=== PATIENT | female | born 1975 | race Caucasian/White ===

== ENCOUNTER 2021-02-16 12:07 | Outpatient (REF) | payer OTHER, SELFPAY ==
--- NOTE | ~2021-02-16 | XR_ITS ---
EXAMINATION: XR THORACOLUMBAR SPINE CLINICAL INFORMATION: Dorsal pain COMPARISON: None TECHNIQUE: 2 views FINDINGS: There is normal thoracic kyphosis. The vertebral heights, alignment and disc heights are normal. There is mild ventral spondylosis throughout dorsal spine. No lytic process. XR/XR thoracic spine 2V IMPRESSION: No compression fractures or subluxations are identified. The disc spaces are preserved ventral spondylosis. The prevertebral soft tissues are normal. The foramina are patent.
[2021-02-16 13:54] LABS: Hematocrit 42.2 % (37-47); Hemoglobin 13.5 g/dl (12.0-16.0); Mean Corpuscular Hemoglobin 27.3 pg (27.0-33.0); Mean Corpuscular Volume 85.3 fL (80-98); Mean Platelet Volume 10.9 fL (9.4-12.3); Platelet Count 297 X10*3/uL (160-400); Red Blood Count 4.95 X10*6/uL (4.20-5.50); Red Cell Distribution Width 13.2 % (11.0-16.0); White Blood Count 11.9 X10*3/uL (4.8-10.8)
[2021-02-16 14:22] LABS: Alanine Aminotransferase 18 U/L (0-31); Albumin Level 4.2 g/dL (3.5-5.0); Alkaline Phosphatase 74 U/L (39-117); Anion Gap 13 (12-20); Aspartate Amino Transferase 14 U/L (5-31); Bilirubin Total 0.5 mg/dL (0.0-1.0); Blood Urea Nitrogen 15 mg/dL (9-16); Carbon Dioxide 27 mmol/L (22-29); Chloride 101 mmol/L (96-108); Cholesterol 185 mg/dL; Estimated Glomerular Filt Rate > 60; Glucose Fasting 97 mg/dL (60-99); HDL Cholesterol 47 mg/dL; LDL Cholesterol Calculated 105 mg/dl; Potassium 4.5 mmol/L (3.3-5.1); Sodium 136 mmol/L (135-145); Total Protein 7.7 g/dL (6.5-8.0); Triglycerides 166 mg/dL
[2021-02-16 14:43] LABS: Thyroid Stimulating Hormone 1.21 uIU/mL (0.32-4.0)
[2021-02-16 16:46] LABS: Appearance Urine CLOUDY; Color Urine YELLOW; Glucose Urine UA NEG (NEG); Leukocyte Esterase Urine NEG (NEG); Nitrite Urine NEG (NEG); PH 5.5 (5.0-8.0); Specific Gravity - Urine >= 1.030 (1.005-1.025); Urine Blood NEG (NEG); Urine Ketones NEG (NEG); Urine Protein NEG (NEG-TRACE)
[2021-02-16 16:57] LABS: Amorphous Sediment Urine 3+ /LPF; RBC Urine 0 /HPF (0); WBC Urine 0 /HPF (0-4)
[2021-02-17 08:21] LABS: Syphilis Screen Nonreactive (Nonreactive)
[2021-02-17 09:02] LABS: HIV AB/AG Nonreactive (Nonreactive); HIV Num 1 0.11 S/CO (0.00-0.99)
[2021-02-17 09:14] LABS: CT PCR NOT DETECTED (Not Detect.); NG PCR NOT DETECTED (Not Detect.)
== END 2021-02-16 12:08 | disposition home or self-care (01) ==
LOC: HO.HMGCLDS 12:07
PROVIDERS: PCP Internal Medicine; Visit Provider Internal Medicine
DX: M54.9 Dorsalgia, unspecified (principal); Z00.00 Encounter for general adult medical examination without abnormal findings
CPT/HCPCS: 36415; 72070; 80053; 80061; 81001; 84443; 85027; 86780; 87389; 87491; 87591

== ENCOUNTER 2021-07-13 15:12 | Outpatient (REF) | payer OTHER, SELFPAY ==
[2021-07-13 18:01] LABS: Cholesterol 216 mg/dL; HDL Cholesterol 47 mg/dL; LDL Cholesterol Calculated 135 mg/dl; Triglycerides 172 mg/dL
[2021-07-14 07:38] LABS: Estimated Average Glucose 105 mg/dL; Hemoglobin A1c % 5.3 %
== END 2021-07-13 15:13 | disposition home or self-care (01) ==
LOC: HO.HMGCLDS 15:12
PROVIDERS: PCP Internal Medicine; Visit Provider Psychiatry & Neurology Psychiatry
DX: Z79.899 Other long term (current) drug therapy (principal)
CPT/HCPCS: 36415; 80061; 83036

== ENCOUNTER → 2021-07-20 10:21 | Outpatient (REF) | payer OTHER, SELFPAY ==
--- NOTE | 2021-07-20 10:24 | CA_ITS ---
Acquisition Time: 2021-07-20 10:26:55 Total Exercise Time: 00:05:00 Test Indications: CP Medications: SEE CHART Protocol: CARRILLO Max HR: 155 BPM 89% of Pred: 174 BPM Max BP: 150/080 mmHG Max Work Load: 7.0 METS Exercise stress test with exercise 5 min of Carrillo protocol with request to stop due to mild to moderate sob and fatigue, without chest discomfort, with isolated PVC, with normotensive response to exercise, without EKG changes meeting criteria for ischemia. Test reviewed with Dr Johns. Referred By: Anika Mcgee Overread By: MADDY WHITMAN
== END ==
LOC: HO.CARD 10:21
PROVIDERS: PCP Internal Medicine; Visit Provider Internal Medicine
DX: R07.9 Chest pain, unspecified (principal)
CPT/HCPCS: 93017

== ENCOUNTER 2022-08-16 14:50 | Outpatient (REF) | payer OTHER, SELFPAY ==
[2022-08-16 16:37] LABS: Estimated Average Glucose 108 mg/dL; Hemoglobin A1c % 5.4 %
[2022-08-16 16:52] LABS: Cholesterol 202 mg/dL; HDL Cholesterol 40 mg/dL; LDL Cholesterol Calculated 132 mg/dl; Triglycerides 154 mg/dL
== END 2022-08-16 14:51 | disposition home or self-care (01) ==
LOC: HO.HMGCLDS 14:50
PROVIDERS: PCP Internal Medicine; Visit Provider Psychiatry & Neurology Psychiatry
DX: Z79.899 Other long term (current) drug therapy (principal)
CPT/HCPCS: 36415; 80061; 83036

== ENCOUNTER 2023-01-12 14:33 | Outpatient (REF) | payer OTHER, SELFPAY ==
--- NOTE | ~2023-01-12 | XR_ITS ---
EXAMINATION: XR WRIST, RIGHT CLINICAL INFORMATION: Pain in right wrist COMPARISON: None TECHNIQUE: PA, lateral, and oblique views of the right wrist. FINDINGS: The bones and soft tissues are normal. No fracture. Alignment is anatomic with normal joint spaces. No erosions or abnormal soft tissue calcifications. XR/XR wrist RT min 3V IMPRESSION: Normal right wrist.
== END 2023-01-12 14:34 | disposition home or self-care (01) ==
LOC: HO.HMGCX 14:33
PROVIDERS: PCP Internal Medicine; Visit Provider Nurse Practitioner Family
DX: M25.531 Pain in right wrist (principal)
CPT/HCPCS: 73110

== ENCOUNTER 2023-05-17 12:48 | Outpatient (AMB) | payer OTHER, SELFPAY ==
--- NOTE | 2023-05-17 13:35 | A.OFFPC_ITS ---
Vital Signs 05/17/23 13:36 05/17/23 13:41 Height 5 ft Weight 230 lb BMI 44.9 BP 110/64 108/80 Blood Pressure Location Lt brachial Lt radial Position Sitting Sitting Pulse 91 Pulse Source Pulse Oximeter Pulse Oximetry (%) 97 Oxygen Delivery Method Room Air Intake Visit Reasons: physical Intake Note: Pt is here today for PE. Allergies cephalexin [CEPHALEXIN] Allergy (Unknown, Verified 05/17/23 13:37) Anaphylaxis ciprofloxacin [CIPROFLOXACIN] Allergy (Unknown, Verified 05/17/23 13:37) R side of body numbness clindamycin [CLINDAMYCIN] Allergy (Unknown, Verified 05/17/23 13:37) UNKNOWN Opioids - Morphine Analogues [OPIOIDS - MORPHINE ANALOGUES] Allergy (Unknown, Verified 05/17/23 13:37) UNKNOWN All Opiates Allergy (Unknown, Uncoded 05/17/23 13:37) Full body hives, hallucinations Medication List - Last Reconciled 05/17/23 by Anika Mcgee MD ascorbate calcium (vitamin C) 500 mg PO DAILY bupropion HCl (Wellbutrin XL) 300 mg PO QAM buspirone 30 mg PO BID cetirizine (Zyrtec) 10 mg PO DAILY PRN cholecalciferol (vitamin D3) 50 mcg PO DAILY diphenhydramine HCl (Benadryl) 25 mg PO BEDTIME PRN doxycycline hyclate 100 mg PO BID ibuprofen 600 mg PO ONCE PRN lorazepam (Ativan) 2 mg PO DAILY PRN omeprazole 20 mg PO DAILY trazodone 100 mg PO BEDTIME PRN Tobacco use date assessed: 05/17/23 Dental Screening Dental Screen Date: 05/17/23 Did you have a dental visit in the last 12 months?: Yes Did you have a dental problem in the last 6 months where you did not have access to dental care?: No Was dental information given to patient?: Patient has dentist HPI physical HPI Details Pt presents for PE. [facility] Medical History Annual physical exam Bipolar 1 disorder Chest pain Mid-back pain, acute PTSD (post-traumatic stress disorder) Surgical History History of hysterectomy Hx of cholecystectomy Family History Father HTN (hypertension) Mother No problems noted. Maternal Uncle Diabetes mellitus Sister No problems noted. Social History Household Members Other:: , unemployed, Sexually active with multiple partners, Housing: House Patient Tobacco Use Status: Former Tobacco user Quit Date: 10/2014 e-Cigarette/Vaping Use: Never Used Substance Use Type: Marijuana Current occupational status: unemployed Cognitive needs: No Hearing needs: No Vision needs: Yes Questionnaire Thrive Questionnaire Date Thrive assessed: 07/13/21 I am a: Patient What is your living situation today?: I have a steady place to live Within the past 12 months, did the food you bought not last and you didn't have the money to get more?: Sometimes True Within the past 12 months, did you worry whether your food would run out before you got money to buy more?: Sometimes True Please select the resources that you would like help with: None AUDIT C Alcohol Use Questionnaire (AUDIT-C) 1. How often do you have a drink containing alcohol?: Never 3. How often do you have six or more drinks on one occasion?: Never Total Score: 0 MARIO-7 AMB Questionnaire MARIO-7 Feeling nervous, anxious, or on edge: 3 = Nearly every day Not being able to stop or control worryin = Nearly every day Worrying too much about different things: 3 = Nearly every day Trouble relaxin = More than half the days Being so restless that it is hard to sit still: 2 = More than half the days Becoming easily annoyed or irritable: 2 = More than half the days Feeling afraid as if something awful might happen: 1 = Several days Total MARIO-7 score (0-4 normal; 5-9 mild; 10-14 moderate; 15-21 severe): 16 Source: Developed by Drs. Pal Virgen, Rasheeda Green, Shaheen Harrington and colleagues, with an educational mehdi from [employer]. Review of Systems Const All systems reviewed & are unremarkable except as noted in HPI and below Reports no additional complaints Eyes Reports no additional complaints ENT Reports no additional complaints Card Reports no additional complaints Resp Reports no additional complaints GI Reports no additional complaints Reports no additional complaints Musc Reports no additional complaints Physical exam (Primary Care) Vital Signs: Last Vital Signs Pulse 91 05/17/23 13:36 BP 108/80 05/17/23 13:41 Pulse Ox 97 05/17/23 13:36 Oxygen Delivery Method Room Air 05/17/23 13:36 BMI result Body Mass Index 44.9 Tobacco/Smoking Status: Tobacco use Status Tobacco use date assessed 05/17/23 05/17/23 13:44 Patient Tobacco Use Status Former Tobacco user 05/17/23 13:44 e-Cigarette/Vaping Use Never Used 05/17/23 13:44 Thrive Assessment: Date of Thrive Assessment Date Thrive assessed 07/13/21 05/17/23 13:44 Const General: no acute distress HENMT Other: Erythema with scaling above upper lip Ears: hearing grossly normal bilaterally General nose exam: Normal external nose present Mouth: Normal oral and palatal mucosa present Throat: Yes posterior oropharynx normal Eyes General: appearance normal, both eyes and all related structures Neck Neck: Yes supple Resp Effort & Inspection: normal respiratory effort Auscultation: clear to auscultation bilaterally Cardio Rhythm: regular rhythm Heart sounds: S1 normal heart sound present and S2 normal heart sound present GI Inspection: Yes normal to inspection Palpation (GI): Soft to palpation Percussion: Yes normal to percussion Auscultation: normal bowel sounds Assessment and Plan Assessment & Plan (1) Annual physical exam: Code(s): Z00.00 - Encounter for general adult medical examination without abnormal findings Plan: Well-balanced at regular exercise weight loss discussed with the patient she will have a fasting blood work today and will schedule mammogram. Colonoscopy discussed with the patient but she declined. Cologuard will be sent (2) Vitamin D deficiency: Code(s): E55.9 - Vitamin D deficiency, unspecified Orders: Orders XR chest 1V Today R07.9 - Chest pain, unspecified Comprehensive [place]. Panel Fast Today E55.9 - Vitamin D deficiency, unspecified, F31.9 - Bipolar disorder, unspecified, F43.10 - Post-traumatic stress disorder, unspecified, Z00.00 - Encounter for general adult medical examination without abnormal findings Lipid Panel Today E55.9 - Vitamin D deficiency, unspecified, F31.9 - Bipolar disorder, unspecified, F43.10 - Post-traumatic stress disorder, unspecified, Z00.00 - Encounter for general adult medical examination without abnormal findings TSH reflex Free T4 Today E55.9 - Vitamin D deficiency, unspecified, F31.9 - Bipolar disorder, unspecified, F43.10 - Post-traumatic stress disorder, unspecified, Z00.00 - Encounter for general adult medical examination without abnormal findings Vitamin D 25-OH Total Today E55.9 - Vitamin D deficiency, unspecified, F31.9 - Bipolar disorder, unspecified, F43.10 - Post-traumatic stress disorder, unspecified, Z00.00 - Encounter for general adult medical examination without abnormal findings Complete Blood Count Auto Diff Today E55.9 - Vitamin D deficiency, unspecified, F31.9 - Bipolar disorder, unspecified, F43.10 - Post-traumatic stress disorder, unspecified, Z00.00 - Encounter for general adult medical examination without abnormal findings Referrals Cologuard Test Z00.00 - Encounter for general adult medical examination without abnormal findings, Z12.11 - Encounter for screening for malignant neoplasm of colon, Z12.12 - Encounter for screening for malignant neoplasm of rectum Medications: New doxycycline hyclate 100 mg PO BID 10 tabs 0RF Coding Level of Care Code Est Pt Prev Care 40-64y(49768) Diagnoses Annual physical exam Z00.00 Vitamin D deficiency E55.9
[2023-05-17 13:36] VITALS: BP 110/64; PULSE 91; O2SAT 97; BMI 44.9
[2023-05-17 13:41] VITALS: BP 108/80
== END 2023-05-17 14:13 | disposition home or self-care (01) ==
PROVIDERS: Visit Provider Internal Medicine
DX: Z00.00 Encounter for general adult medical examination without abnormal findings (principal); E55.9 Vitamin D deficiency, unspecified
CPT/HCPCS: 99396

== ENCOUNTER 2023-05-17 14:06 | Outpatient (REF) | payer OTHER, SELFPAY ==
--- NOTE | ~2023-05-17 | XR_ITS ---
EXAMINATION: XR CHEST CLINICAL INFORMATION: Chest pain. COMPARISON: 11/09/2018 TECHNIQUE: 2 views of the chest were obtained. FINDINGS: The lungs are well expanded. No focal consolidation. No pleural effusion. Cardiac silhouette is unchanged. XR/XR chest 2V IMPRESSION: No acute abnormality.
[2023-05-17 16:11] LABS: MANUAL DIFF FLAG NO
[2023-05-17 16:23] LABS: Basophils Percent Auto 0.5 % (0-2); Eosinophils Absolute Auto 0.1 X10*3/uL (0.0-0.4); Eosinophils Percent Auto 0.8 % (0-4); Hematocrit 41.4 % (37.0-47.0); Hemoglobin 13.3 g/dl (12.0-16.0); Imm Gran Abs Auto 0.03 X10*3/uL (0.00-0.03); Imm Gran Pct Auto 0.4 % (0.0-0.4); Lymphocytes Percent Auto 23.4 % (20-40); Mean Corpuscular HGB Conc 32.1 g/dl (31.0-35.0); Mean Corpuscular Hemoglobin 27.2 pg (27.0-33.0); Mean Corpuscular Volume 84.7 fL (80.0-98.0); Mean Platelet Volume 10.4 fL (9.4-12.3); Monocytes Absolute Auto 0.6 X10*3/uL (0.1-1.2); Monocytes Percent Auto 6.5 % (2-11); Neutrophils Absolute Auto 5.9 x10*3/uL (2.0-8.3); Neutrophils Percent Auto 68.4 % (45-73); Platelet Count 350 X10*3/uL (160-400); Red Blood Count 4.89 X10*6/uL (4.20-5.50); Red Cell Distribution Width 13.3 % (11.0-16.0); White Blood Count 8.6 X10*3/uL (4.8-10.8)
[2023-05-17 17:29] LABS: Alanine Aminotransferase 21 U/L (0-31); Albumin Level 4.2 g/dL (3.5-5.0); Alkaline Phosphatase 73 U/L (39-117); Anion Gap 16 (12-20); Aspartate Amino Transferase 17 U/L (5-31); Bilirubin Total 0.6 mg/dL (0.0-1.0); Blood Urea Nitrogen 13 mg/dL (9-16); Carbon Dioxide 24 mmol/L (22-29); Chloride 105 mmol/L (96-108); Cholesterol 187 mg/dL; Estimated Glomerular Filt Rate > 60; Glucose Fasting 111 mg/dL (60-99); HDL Cholesterol 39 mg/dL; LDL Cholesterol Calculated 122 mg/dl; Potassium 5.1 mmol/L (3.3-5.1); Sodium 140 mmol/L (135-145); Triglycerides 131 mg/dL
[2023-05-17 17:44] LABS: TSH reflex Free T4 1.54 uIU/mL (0.32-4.0)
== END 2023-05-17 14:07 | disposition home or self-care (01) ==
LOC: HO.HMGCX 14:06
PROVIDERS: PCP Internal Medicine; Visit Provider Internal Medicine
DX: Z00.00 Encounter for general adult medical examination without abnormal findings (principal); E55.9 Vitamin D deficiency, unspecified; F31.9 Bipolar disorder, unspecified; F43.10 Post-traumatic stress disorder, unspecified; R07.9 Chest pain, unspecified
CPT/HCPCS: 36415; 71046; 80053; 80061; 82306; 84443; 85025

== ENCOUNTER 2023-05-23 12:35 | Outpatient (REF) | payer OTHER, SELFPAY ==
[2023-05-23 16:31] LABS: Glucose Fasting 109 mg/dL (60-99)
[2023-05-24 05:25] LABS: Estimated Average Glucose 103 mg/dL; Hemoglobin A1c % 5.2 %
== END 2023-05-23 12:36 | disposition home or self-care (01) ==
LOC: HO.HMGCLDS 12:35
PROVIDERS: PCP Internal Medicine; Visit Provider Internal Medicine
DX: R73.9 Hyperglycemia, unspecified (principal)
CPT/HCPCS: 36415; 82947; 83036

== ENCOUNTER 2023-06-29 16:00 | Outpatient (REF) | payer OTHER, SELFPAY | END 2023-06-29 16:01 | disposition home or self-care (01) | LOC: HO.MAMMO 16:00 | PROVIDERS: PCP Internal Medicine; Visit Provider Internal Medicine | DX: Z12.31 Encounter for screening mammogram for malignant neoplasm of breast (principal) | CPT/HCPCS: 77063; 77067 ==

== ENCOUNTER → 2023-06-29 16:15 | Outpatient (BNV) | payer OTHER, SELFPAY | PROVIDERS: PCP Internal Medicine; Visit Provider Radiology Diagnostic Radiology | DX: Z12.31 Encounter for screening mammogram for malignant neoplasm of breast (principal) | CPT/HCPCS: 77063; 77067 ==

== ENCOUNTER 2024-02-09 17:11 | Emergency (ER) | payer OTHER, SELFPAY ==
[2024-02-09 17:14] VITALS: BP 144/103; PULSE 108; RESP 22; TEMP 37.4; O2SAT 97; BMI 43.0
--- NOTE | 2024-02-09 17:17 | ED.GENADULT ---
HPI - General Adult General Chief complaint: Psychiatric Symptoms Stated complaint: needs to see crisis Time Seen by Provider: 02/09/24 17:38 Source: patient Mode of arrival: ambulatory Limitations: no limitations History of Present Illness HPI narrative: 49 yo female with PMH of bipolar, PTSD here with c/o worsening manic episode due to seasonal bipolar, increased life stressors, poor PO intake, took 2mg ativan INSURANCE VERIFY REP. vague SI no plan. No prior hospitalizations MD complaint: worsening bipolar Onset (ago): month(s) Severity: severe Relieving factors: none Exacerbating factors: other (life stress) Associated symptoms: loss of appetite and other (insomnia) Treatments prior to arrival: none Related Data Home Medications ?Medication ?Instructions ?Recorded ?Confirmed buspirone 30 mg tablet 30 mg PO BID 09/08/20 05/17/23 ascorbate calcium (vitamin C) 500 500 mg PO DAILY 01/12/23 05/17/23 mg tablet bupropion HCl 300 mg 24 hr tablet, 300 mg PO QAM 01/12/23 05/17/23 extended release (Wellbutrin XL) cholecalciferol (vitamin D3) 50 50 mcg PO DAILY 01/12/23 05/17/23 mcg (2,000 unit) capsule diphenhydramine HCl 25 mg capsule 25 mg PO BEDTIME PRN 01/12/23 05/17/23 (Benadryl) ibuprofen 600 mg tablet 600 mg PO ONCE PRN 01/12/23 05/17/23 omeprazole 20 mg capsule,delayed 20 mg PO DAILY 01/12/23 05/17/23 release trazodone 100 mg tablet 100 mg PO BEDTIME PRN 01/12/23 05/17/23 lorazepam 2 mg tablet (Ativan) 2 mg PO DAILY PRN 05/17/23 05/17/23 Previous Rx's ?Medication ?Instructions ?Recorded doxycycline hyclate 100 mg tablet 100 mg PO BID #10 tabs 05/17/23 Allergies Allergy/AdvReac Type Severity Reaction Status Date / Time cephalexin [CEPHALEXIN] Allergy Unknown Anaphylaxis Verified 02/09/24 18:01 ciprofloxacin [CIPROFLOXACIN] Allergy Unknown R side of Verified 02/09/24 18:01 body numbness clindamycin [CLINDAMYCIN] Allergy Unknown UNKNOWN Verified 02/09/24 18:01 Opioids - Morphine Analogues Allergy Unknown UNKNOWN Verified 02/09/24 18:01 [OPIOIDS - MORPHINE ANALOGUES] All Opiates Allergy Unknown Full body Uncoded 05/17/23 13:37 hives, hallucinations Review of Systems Review of Systems: Constitutional : No Fever, No Chills ENT/Mouth : No Ear Pain, No Nasal Congestion, No sore throat Eyes: No Eye Pain, No Swelling, No Redness Cardiovascular : No Chest Pain, No SOB Respiratory : No Cough, No Sputum, No Dyspnea Gastrointestinal : No Nausea, No Vomiting, No Diarrhea, No Hematochezia, No Melena Genitourinary : No Dysuria, No Urinary Frequency, No Hematuria Musculoskeletal : No Myalgias Skin : No Skin Lesions, No rash Neuro : No Weakness, No Numbness, No Paresthesias, No Dizziness, No Headache Psych : positive Anxiety, positive Depression, positive SI no HI All other systems reviewed and are negative [facility] Past Medical History Attestation statement: The following information was validated with the patient. Source: old records reviewed Medical History Mid-back pain, acute Chest pain PTSD (post-traumatic stress disorder) Bipolar 1 disorder Annual physical exam Surgical History Hx of cholecystectomy History of hysterectomy Family History Family History Father HTN (hypertension) Mother No problems noted. Maternal Uncle Diabetes mellitus Sister No problems noted. Social History Social History Household Members Other:: , unemployed, Sexually active with multiple partners, Housing: House Patient Tobacco Use Status: Former Tobacco user Quit Date: 10/2014 e-Cigarette/Vaping Use: Never Used Substance Use Type: Marijuana Current occupational status: unemployed Cognitive needs: No Hearing needs: No Vision needs: Yes Physical Exam ED Vital Signs: Vital Signs - 24 hr 02/09/24 17:14 Temperature 99.4 F Pulse Rate 108 H Respiratory Rate 22 H Blood Pressure 144/103 H Pulse Oximetry 97 Oxygen Delivery Method Room Air BMI result Body Mass Index 43.0 Appearance: Alert. Oriented X3. No acute distress. Eyes: Pupils equal, round and reactive to light. ENT: Pharynx normal. Neck: Normal inspection. Neck supple. CVS: Normal heart rate and rhythm. Pulses normal. Respiratory: No respiratory distress. Breath sounds normal. Abdomen: Soft and nontender. Skin: Skin warm and dry. Normal skin color. Normal skin turgor. Extremities: No lower extremity edema. No calf ttp Neuro: Oriented X 3. No motor deficit. No sensory deficit. Cn2-12 intact Course Course Course Narrative: RME performed by Yoselin Lopez PA-C. Patient is a 49 year old assigned female at presenting to the emergency department with increased anxiety. Feels as though she is under an immense amount of stress and can't relax. Patient states that she took 2 doses of her lorazepam at home and believes her second dose is kicking in. Detailed physical exam and review of systems are deferred to the occ therapist. Labs and swabs ordered. Charge nurse made aware. Medical Decision Making Medical Decision Making [facility] Narrative: 49 yo female with PMH of bipolar, PTSD here with c/o worsening bipolar and vague SI along with feeling manic and out of control. At this time will need labs, CARE team consult. Differential Diagnosis Differential Diagnoses: The differential diagnosis associated with the presentation includes SI, bipolar Admission/Observation Consideration of admission/observation: Escalation of care including admission/observation considered observation started at 541pm pending further workup and CARE team consult Consult Healthcare Provider Management of the patient was discussed with: Behavioral Health Provider Lab Data [facility] Lab Attestation statement: I reviewed the patient's lab results. External Record Review External record reviewed: Inpatient record Discharge Plan Discharge Clinical Impression: Suicidal ideation Patient Disposition: Still a Patient Prescriptions: No Action buspirone 30 mg tablet 30 mg PO BID trazodone 100 mg tablet 100 mg PO BEDTIME PRN diphenhydramine HCl [Benadryl] 25 mg capsule 25 mg PO BEDTIME PRN ascorbate calcium (vitamin C) 500 mg tablet 500 mg PO DAILY omeprazole 20 mg capsule,delayed release(DR/EC) 20 mg PO DAILY ibuprofen 600 mg tablet 600 mg PO ONCE PRN cholecalciferol (vitamin D3) 50 mcg (2,000 unit) capsule 50 mcg PO DAILY bupropion HCl [Wellbutrin XL] 300 mg tablet extended release 24 hr 300 mg PO QAM lorazepam [Ativan] 2 mg tablet 2 mg PO DAILY PRN doxycycline hyclate 100 mg tablet 100 mg PO BID Qty: 10 0RF Print Language: Malagasy
[2024-02-09 17:59] LABS: MANUAL DIFF FLAG NO
[2024-02-09 18:04] VITALS: BP 115/78; PULSE 89; RESP 18; TEMP 36.6; O2SAT 96
[2024-02-09 18:13] LABS: Basophils Percent Auto 0.4 % (0-2); Eosinophils Absolute Auto 0.1 X10*3/uL (0.0-0.4); Eosinophils Percent Auto 0.6 % (0-4); Hematocrit 39.5 % (37.0-47.0); Hemoglobin 13.3 g/dl (12.0-16.0); Imm Gran Abs Auto 0.05 X10*3/uL (0.00-0.03); Imm Gran Pct Auto 0.6 % (0.0-0.4); Lymphocytes Absolute Auto 1.9 X10*3/uL (1.2-4.9); Mean Corpuscular HGB Conc 33.7 g/dl (31.0-35.0); Mean Corpuscular Hemoglobin 27.9 pg (27.0-33.0); Mean Corpuscular Volume 82.8 fL (80.0-98.0); Monocytes Absolute Auto 0.6 X10*3/uL (0.1-1.2); Monocytes Percent Auto 7.4 % (2-11); Neutrophils Absolute Auto 5.3 x10*3/uL (2.0-8.3); Platelet Count 278 X10*3/uL (160-400); Red Blood Count 4.77 X10*6/uL (4.20-5.50); Red Cell Distribution Width 13.1 % (11.0-16.0); White Blood Count 7.8 X10*3/uL (4.8-10.8)
[2024-02-09 18:18] LABS: Acetaminophen LAB < 3 mcg/mL (<30); Salicylate < 5.0 mg/dL (15-30)
[2024-02-09 18:19] LABS: Alanine Aminotransferase 15 U/L (0-31); Albumin Level 3.8 g/dL (3.5-5.0); Alkaline Phosphatase 53 U/L (39-117); Anion Gap 13 (12-20); Aspartate Amino Transferase 14 U/L (5-31); Bilirubin Total 0.4 mg/dL (0.0-1.0); Blood Urea Nitrogen 11 mg/dL (9-16); Carbon Dioxide 24 mmol/L (22-29); Chloride 106 mmol/L (96-108); Creatinine Clr Calc Pharmacy 90.2; Estimated Glomerular Filt Rate > 60; Ethanol < 10 mg/dL; Glucose Random 115 mg/dL (60-115); Sodium 139 mmol/L (135-145); Total Protein 7.3 g/dL (6.5-8.0)
[2024-02-09 18:25] LABS: COVID-19 Test Negative (Negative); IDNOW Serial# 08D9AD1C
[2024-02-09 19:21] LABS: Amphetamine Screen Urine Not Detected (Not Detect); Barbiturates, Urine Not Detected (Not Detect); Benzodiazepines Screen Urine Not Detected (Not Detect); Cannabinoid Screen Urine POSITIVE (Not Detect); Cocaine Screen Urine Not Detected (Not Detect); Fentanyl, urine Not Detected (Not Detect); Opiate Screen Urine Not Detected (Not Detect); Phencyclidine Screen Urine Not Detected (Not Detect)
--- NOTE | 2024-02-09 19:24 | PC.NURSE ---
Assumed care of pt at 19:00. PT laying in bed, appears to be in no apparent distress. Offers no complaints @ this time. @ bedside. Awaiting medical clearance for care team eval @ this time. PT admits to taking 4mg of Ativan PO prior to arrival, VSS @ this time.
[2024-02-09 19:25] LABS: Appearance Urine Clear; Color Urine Yellow; Glucose Urine UA Negative (Negative); Leukocyte Esterase Urine Negative (Negative); Nitrite Urine Negative (Negative); PH 7.5 (5.0-9.0); Urine Blood Negative (Negative); Urine Ketones Negative (Negative); Urine Protein Negative (Neg-Trace)
[2024-02-09 19:28] LABS: UPreg QC Valid YES; Urine Pregnancy NEGATIVE (NEGATIVE)
[2024-02-09 19:30] VITALS: BP 130/79; PULSE 81; RESP 16; TEMP 36.6; O2SAT 97
--- NOTE | 2024-02-09 21:20 | MHC.CARE ---
CARE Team spoke with Brandon who is Pt's spouse for the past 10 years. he reports that Pt is having frequent manic episodes that involve breaking down emotionally, spiraling and hyperventilating. This is precipitated by money issues and guilt that she is unable to financially contribute. He reports that Pt's medications seemed to be working at first, but are no longer helpful. He reports that Pt has been having increasing passive SI thoughts with no specific plan; I don't feel like she is a danger to herself or others. He reports that Pt has a risk hx of attempts and SIB, but not in the time he has known her. No IPLOC since he has known her. Pt does not have access to firearms. Sleep/appetite are poor. Has therapy/psychiatry providers through [facility] and is engaged.
[2024-02-10 01:24] VITALS: BP 144/96; PULSE 83; RESP 18; TEMP 36.6; O2SAT 99
--- NOTE | 2024-02-10 01:35 | PC.NURSE ---
PT's Lorazepam has been stored in the pharmacy however pharmacy is closed @ this time. Nursing loss prevention supervisor contacted (Jillian) and pt has been instructed to come back tomorrow to bead picker her medication. PT given a copy of the pharmacy storing receipt.
== END 2024-02-10 01:38 | disposition home or self-care (01) ==
PROVIDERS: Physician Assistant Medical; Emergency Provider Emergency Medicine; PCP Internal Medicine
DX: R45.851 Suicidal ideations (principal); F31.9 Bipolar disorder, unspecified; F43.10 Post-traumatic stress disorder, unspecified; Z11.52 Encounter for screening for COVID-19; Z88.1 Allergy status to other antibiotic agents; Z88.5 Allergy status to narcotic agent
CPT/HCPCS: 80053; 80143; 80179; 80307; 81003; 81025; 85025; 87635; 99284; 99285; S9485

== ENCOUNTER 2024-02-13 15:30 | Inpatient (IN) | payer OTHER, SELFPAY ==
[2024-02-13 16:02] VITALS: BP 132/99; PULSE 89; RESP 16; TEMP 36.9; O2SAT 97; BMI 41.1
--- NOTE | 2024-02-13 16:02 | ED.PSYCH ---
HPI - Psych General Chief Complaint: Psychiatric Symptoms Stated Complaint: manic episode, was told to come back Time Seen by Provider: 02/13/24 16:14 Source: patient and old records reviewed Mode of arrival: ambulatory Limitations: no limitations History of Present Illness HPI Narrative: 49 yo female with PMH of bipolar, PTSD here with c/o increased life stress rapid cycling of manic and depressive episodes. She has no HI but has SI. Cannot get in to see her psychiatrist so her therapist sent her here. MD complaint: suicidal ideation, feels depressed and anxiety Onset (ago): week(s) Duration: getting worse History of same: Yes Relieving factors: none Exacerbating factors: other Context: significant life stressor Associated psychiatric symptoms: suicidal ideation and racing thoughts Associated symptoms: denies other symptoms Treatments prior to arrival: none If self harm: admits thoughts of self harm Related Data Home Medications ?Medication ?Instructions ?Recorded ?Confirmed buspirone 30 mg tablet 30 mg PO BID 09/08/20 05/17/23 ascorbate calcium (vitamin C) 500 500 mg PO DAILY 01/12/23 05/17/23 mg tablet bupropion HCl 300 mg 24 hr tablet, 300 mg PO QAM 01/12/23 05/17/23 extended release (Wellbutrin XL) cholecalciferol (vitamin D3) 50 50 mcg PO DAILY 01/12/23 05/17/23 mcg (2,000 unit) capsule diphenhydramine HCl 25 mg capsule 25 mg PO BEDTIME PRN 01/12/23 05/17/23 (Benadryl) ibuprofen 600 mg tablet 600 mg PO ONCE PRN 01/12/23 05/17/23 omeprazole 20 mg capsule,delayed 20 mg PO DAILY 01/12/23 05/17/23 release trazodone 100 mg tablet 100 mg PO BEDTIME PRN 01/12/23 05/17/23 lorazepam 2 mg tablet (Ativan) 2 mg PO DAILY PRN 05/17/23 05/17/23 Previous Rx's ?Medication ?Instructions ?Recorded doxycycline hyclate 100 mg tablet 100 mg PO BID #10 tabs 05/17/23 Allergies Allergy/AdvReac Type Severity Reaction Status Date / Time cephalexin [CEPHALEXIN] Allergy Unknown Anaphylaxis Verified 02/13/24 16:07 ciprofloxacin [CIPROFLOXACIN] Allergy Unknown R side of Verified 02/13/24 16:07 body numbness clindamycin [CLINDAMYCIN] Allergy Unknown UNKNOWN Verified 02/13/24 16:07 Opioids - Morphine Analogues Allergy Unknown UNKNOWN Verified 02/13/24 16:07 [OPIOIDS - MORPHINE ANALOGUES] All Opiates Allergy Unknown Full body Uncoded 05/17/23 13:37 hives, hallucinations Review of Systems Review of Systems: Constitutional : No Fever, No Chills ENT/Mouth : No Ear Pain, No Nasal Congestion, No sore throat Eyes: No Eye Pain, No Swelling, No Redness Cardiovascular : No Chest Pain, No SOB Respiratory : No Cough, No Sputum, No Dyspnea Gastrointestinal : No Nausea, No Vomiting, No Diarrhea, No Hematochezia, No Melena Genitourinary : No Dysuria, No Urinary Frequency, No Hematuria Musculoskeletal : No Myalgias Skin : No Skin Lesions, No rash Neuro : No Weakness, No Numbness, No Paresthesias, No Dizziness, No Headache Psych : positive Anxiety, positive Depression, positive SI no HI All other systems reviewed and are negative [facility] Past Medical History Attestation statement: The following information was validated with the patient. Source: old records reviewed Medical History Mid-back pain, acute Chest pain PTSD (post-traumatic stress disorder) Bipolar 1 disorder Annual physical exam Surgical History Hx of cholecystectomy History of hysterectomy Family History Family History Father HTN (hypertension) Mother No problems noted. Maternal Uncle Diabetes mellitus Sister No problems noted. Social History Social History Household Members Other:: , unemployed, Sexually active with multiple partners, Housing: House Patient Tobacco Use Status: Former Tobacco user Quit Date: 10/2014 e-Cigarette/Vaping Use: Never Used Substance Use Type: Marijuana Current occupational status: unemployed Cognitive needs: No Hearing needs: No Vision needs: Yes Physical Exam Vital Signs: Vital Signs: Last Vital Signs Temp 98.4 F 02/13/24 16:02 Pulse 89 02/13/24 16:02 Resp 16 02/13/24 16:02 BP 132/99 H 02/13/24 16:02 Pulse Ox 97 02/13/24 16:02 O2 Del Method Room Air 02/13/24 16:02 BMI result Body Mass Index 41.1 Appearance: Alert. Oriented X3. No acute distress. Eyes: Pupils equal, round and reactive to light. ENT: Pharynx normal. Neck: Normal inspection. Neck supple. CVS: Normal heart rate and rhythm. Pulses normal. Respiratory: No respiratory distress. Breath sounds normal. Abdomen: Soft and nontender. Skin: Skin warm and dry. Normal skin color. Normal skin turgor. Extremities: No lower extremity edema. No calf ttp Neuro: Oriented X 3. No motor deficit. No sensory deficit. CN2-12 intact Course Course Course Narrative: RME: 49 yo female hx of bipolar disorder, PTSD here for?eval of worsening depression following massive manic episode 5 days. ago. endorses vague SI. No HI. has attempted suicide in the past. she was see by care team on 02/09/24 and discharged home- told to come back if anything worsens. additionally endorses atraumatic low back pain x2 days. pain radiates down both LEs to knees. labs, UA, u preg ordered. will need care team consult. Full HPI, ROS and PE to be performed by the primary ED provider. Medical Decision Making Medical Decision Making [facility] Narrative: 49 yo female with PMH of bipolar, PTSD here with depression, SI and wants inpatient level of care due to worsening symptoms. Will obtain labs and CARE team consult Differential Diagnosis Differential Diagnoses: The differential diagnosis associated with the presentation includes depression, SI Admission/Observation Consideration of admission/observation: Escalation of care including admission/observation considered physician observation started at 446pm until CARE team sees the patient Consult Healthcare Provider Management of the patient was discussed with: Behavioral Health Provider Lab Data [facility] Lab Attestation statement: I reviewed the patient's lab results. External Record Review External record reviewed: Inpatient record Discharge Plan Discharge Clinical Impression: Bipolar disorder Patient Disposition: Still a Patient Prescriptions: No Action buspirone 30 mg tablet 30 mg PO BID trazodone 100 mg tablet 100 mg PO BEDTIME PRN diphenhydramine HCl [Benadryl] 25 mg capsule 25 mg PO BEDTIME PRN ascorbate calcium (vitamin C) 500 mg tablet 500 mg PO DAILY omeprazole 20 mg capsule,delayed release(DR/EC) 20 mg PO DAILY ibuprofen 600 mg tablet 600 mg PO ONCE PRN cholecalciferol (vitamin D3) 50 mcg (2,000 unit) capsule 50 mcg PO DAILY bupropion HCl [Wellbutrin XL] 300 mg tablet extended release 24 hr 300 mg PO QAM lorazepam [Ativan] 2 mg tablet 2 mg PO DAILY PRN doxycycline hyclate 100 mg tablet 100 mg PO BID Qty: 10 0RF Print Language: Lao
--- NOTE | 2024-02-13 16:17 | PC.NURSE ---
PT ARRIVED ON THE UNIT STATING THAT SHE TOOK PRIOR TO HER ARRIVAL TO THE ED ATIVAN 4MG AND THC/RSO 50MG.
[2024-02-13 16:39] LABS: MANUAL DIFF FLAG NO
[2024-02-13 16:43] LABS: Basophils Percent Auto 0.3 % (0-2); Eosinophils Absolute Auto 0.1 X10*3/uL (0.0-0.4); Eosinophils Percent Auto 0.6 % (0-4); Imm Gran Abs Auto 0.03 X10*3/uL (0.00-0.03); Imm Gran Pct Auto 0.3 % (0.0-0.4); Lymphocytes Absolute Auto 2.4 X10*3/uL (1.2-4.9); Lymphocytes Percent Auto 25.6 % (20-40); Mean Corpuscular HGB Conc 32.6 g/dl (31.0-35.0); Mean Corpuscular Hemoglobin 27.2 pg (27.0-33.0); Mean Corpuscular Volume 83.7 fL (80.0-98.0); Mean Platelet Volume 9.6 fL (9.4-12.3); Monocytes Absolute Auto 0.5 X10*3/uL (0.1-1.2); Monocytes Percent Auto 5.8 % (2-11); Neutrophils Absolute Auto 6.3 x10*3/uL (2.0-8.3); Neutrophils Percent Auto 67.4 % (45-73); Platelet Count 303 X10*3/uL (160-400); Red Blood Count 5.14 X10*6/uL (4.20-5.50); Red Cell Distribution Width 12.8 % (11.0-16.0); White Blood Count 9.3 X10*3/uL (4.8-10.8)
[2024-02-13 16:44] LABS: Appearance Urine Clear; Color Urine Yellow; Glucose Urine UA Negative (Negative); Leukocyte Esterase Urine Trace (Negative); Nitrite Urine Negative (Negative); UMIC TRIGGER UACC YES; Urine Blood Negative (Negative); Urine Ketones Negative (Negative); Urine Protein Negative (Neg-Trace)
[2024-02-13 16:45] LABS: UPreg QC Valid YES; Urine Pregnancy NEGATIVE (NEGATIVE)
[2024-02-13 16:48] LABS: Amphetamine Screen Urine Not Detected (Not Detect); Barbiturates, Urine Not Detected (Not Detect); Benzodiazepines Screen Urine Not Detected (Not Detect); Cannabinoid Screen Urine POSITIVE (Not Detect); Cocaine Screen Urine Not Detected (Not Detect); Fentanyl, urine Not Detected (Not Detect); Opiate Screen Urine Not Detected (Not Detect); Phencyclidine Screen Urine Not Detected (Not Detect)
[2024-02-13 16:49] LABS: Bacteria Urine 1+ (None Seen); Hyaline Casts Urine 0-2 /LPF (0-2); RBC Urine 0-2 /HPF (0-2); WBC Urine 0-5 /HPF (0-5)
[2024-02-13 16:55] LABS: Alanine Aminotransferase 13 U/L (0-31); Albumin Level 4.2 g/dL (3.5-5.0); Alkaline Phosphatase 59 U/L (39-117); Anion Gap 11 (12-20); Aspartate Amino Transferase 13 U/L (5-31); Bilirubin Total 0.5 mg/dL (0.0-1.0); Blood Urea Nitrogen 12 mg/dL (9-16); Calcium 9.6 mg/dL (8.4-10.2); Carbon Dioxide 29 mmol/L (22-29); Chloride 103 mmol/L (96-108); Estimated Glomerular Filt Rate > 60; Ethanol < 10 mg/dL; Glucose Random 96 mg/dL (60-115); Lipase 19 U/L (8-78); Magnesium 1.9 mg/dL (1.6-2.6); Potassium 4.1 mmol/L (3.3-5.1); Sodium 139 mmol/L (135-145); Total Protein 8.2 g/dL (6.5-8.0)
[2024-02-13 16:56] LABS: Salicylate < 5.0 mg/dL (15-30)
[2024-02-13] MEDS: Ibuprofen 600 MG TABLET PO (22:02)
[2024-02-13] MEDS: LORazepam 1 MG TABLET 2 MG PO (22:28)
[2024-02-13 22:46] VITALS: PULSE 94; RESP 16; O2SAT 99
[2024-02-14 00:45] VITALS: BP 144/76; PULSE 94; RESP 18; TEMP 36.6; O2SAT 98
--- NOTE | 2024-02-14 07:51 | PHA.MEDREC ---
Pharmacy Consult ? Medication Reconciliation Pharmacy has completed the medication reconciliation. Reviewed med rec done by nursing
[2024-02-14] MEDS: Sertraline HCL 50 MG TABLET PO (08:35)
[2024-02-14] MEDS: busPIRone HCl 10 MG TABLET 30 MG PO ×2 (08:35→21:05)
[2024-02-14] MEDS: buPROPion HCl XL 300 MG TAB.ER.24H PO (08:36)
--- NOTE | 2024-02-14 09:28 | ECG_ITS ---
Test Reason : check prolong QT Blood Pressure : / mmHG Vent. Rate : 091 BPM Atrial Rate : 091 BPM P-R Int : 128 ms QRS Dur : 074 ms QT Int : 346 ms P-R-T Axes : -01 019 030 degrees QTc Int : 425 ms Normal sinus rhythm Septal infarct , age undetermined Abnormal ECG No previous ECGs available Referred By: Mariah Baez Electronically Signed By:Ed Johns
[2024-02-14 10:39] LABS: COVID-19 Test Negative (Negative); IDNOW Serial# 08D9AD1C
[2024-02-14 11:49] VITALS: BP 140/91; PULSE 95; RESP 15; TEMP 36.8; O2SAT 98
[2024-02-14 14:50] VITALS: BP 135/88; PULSE 94; RESP 16; TEMP 36.9; O2SAT 96
[2024-02-14 15:00] VITALS: BMI 40.6
--- NOTE | 2024-02-14 15:11 | PC.NURSE ---
assumed care of pt at 0700. pt a&o x4, initially teary and anxious, but cooperative. this AM, pt was crying in room stating she is anxious and can't explain why . pt reports she was not happy with breakfast and would like a grilled cheese for lunch. t/w placed a request to the kitchen. pt provided with PBJ to which pt was thankful. pt then stated she missed her and her cat and was upset by her mother that thinks she is just attention seeking . pt sts she gets seasonally manic and her stated she started acting abnormally on monday. pt requesting medication to calm down and stop crying. Dr. Fraser notified and aware. plan to give AM meds and then go from there for a PRN. pt medicated with AM medicatons. approx 1 hr later, pt in much better spirits stating it's amazing what happens when I take my meds . pt did not require additional medication. pt calm and cooperative rest of stay in POD. makes needs known, respectful. vss. report given to MANE RN. pt transported to inpatient room.
[2024-02-14] MEDS: Acetaminophen 325 MG TABLET 650 MG PO (16:19)
[2024-02-14] MEDS: hydrOXYzine HCL 25 MG TABLET PO (16:19)
--- NOTE | 2024-02-14 17:42 | PC.ADMIT ---
Suzan is a 49 year old female admitted to the unit at 1445 from the Pod on a CV for treatment of manic episode. Dx of unspecified Bipolar D/O and unspecified Anxiety D/O. Pt originally came to the ED over the weekend where she was D/C and told to come back if depression worsened, pt returned to the ED on 02/13/24 with depression and SI with a plan but no intent. Pt reported I feel like if you think about suicide you have a plan, I don't want to act on it but it's always there in the back of my head, but I would never do anything. Pt denied SI/HI. Pt reports I live in my own personal nightmare that I created. I haven't had a job in 10 years. I constantly fell useless and a waste of space. Pt is A&O x4. Pt was cooperative and pleasant during admission. Pt compliant with skin check. Mood is anxious and depressed. Affect is sad and anxious. Pt denies AH or VH at this time. No overt psychosis or expressed delusions observed. Pt thought process is linear but speech is rapid and pressured. No recent weight gain or loss. Pt reports periods of insomnia. Pt uses marijuana on a daily bases and reports feeling withdrawing from smoking, it just really uncomfortable. Pt has Hx of athletic induced asthma, fibromyalgia and chronic back pain. Pt has a Hx of suicide attempts in the past of drinking Vodka and her medications. Pt reported feeling safe at home. Pt had a recent stressor of Father increasing becoming more sick. Tox screen positive for marijuana. COVID negative. Placed on 15 minute checks for safety.
--- NOTE | 2024-02-14 19:12 | PC.NURSE ---
Pt reported she has agoraphobia and becomes very anxious when she leaves her house.
[2024-02-14] MEDS: Ibuprofen 600 MG TABLET PO (21:06)
--- NOTE | 2024-02-14 21:18 | PC.NURSE ---
Patient notified of Flu shot pending, patient consented to take flu shot, administered at 2106, patient tolerated administration process well
[2024-02-14 22:33] VITALS: BP 113/83; PULSE 105; RESP 16; TEMP 36.6; O2SAT 97
[2024-02-15] MEDS: Acetaminophen 325 MG TABLET 650 MG PO ×3 (00:55→20:34)
[2024-02-15 08:39] VITALS: BP 137/64; PULSE 88; RESP 14; TEMP 36.7; O2SAT 99
[2024-02-15] MEDS: busPIRone HCl 10 MG TABLET 30 MG PO ×2 (09:04→20:34)
[2024-02-15] MEDS: Sertraline HCL 50 MG TABLET PO (09:04)
[2024-02-15] MEDS: buPROPion HCl XL 300 MG TAB.ER.24H PO (09:04)
[2024-02-15] MEDS: Ibuprofen 600 MG TABLET PO ×3 (09:31→23:21)
[2024-02-15 09:35] LABS: Estimated Average Glucose 105 mg/dL; Hemoglobin A1c % 5.3 % (<6.0)
[2024-02-15 10:15] LABS: Cholesterol 213 mg/dL (<200); HDL Cholesterol 41 mg/dL (>40); LDL Cholesterol Calculated 144 mg/dL (<100); Triglycerides 142 mg/dL (<150)
[2024-02-15 10:32] LABS: Free T4 (Free Thyroxine) 1.11 ng/dL (0.71-1.85); Thyroid Stimulating Hormone 2.46 uIU/mL (0.32-4.0)
[2024-02-15 10:38] LABS: Folate 13.5 ng/mL (> or = 4.0); Vitamin B12 448 pg/mL (200-900)
--- NOTE | 2024-02-15 16:26 | HO.PSYADMNOT ---
HPI Date of Service: 02/15/24 Chief Complaint: Depression HPI Narrative: per CARE team millysanjay desai presented 3 days [employer] and was sent home with recommendation to return PRN, which she subsequently did. she reported worsened depression as well as SI with plan but no intent. she presented as tearful and self-critical, describing herself as worthless and a burden. 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 on interview with MD, pt states she has been very emotional recently, facing psychosocial stressors of her father's illness, money troubles, and her 's being unhappy at his job and talking about changing jobs. she states she experiences SI on a regular basis and it's always been the same way - via overdose - so that's not even a question. that's the plan. but she says she has no intention of acting on her thoughts. she presents as quite bright and says she is feeling much better and does not want to remain in the hospital. she has a standing weekly appointment with her therapist, whom she cherishes, and she can contact her prescriber for an appointment in the near future. although she has some ideas about med changes she might think would be helpful, she is content to wait to see her outpatient prescriber to discuss. she states her recent emotional lability is strange for her, but once she got into the pod and cried overnight, when she got up the next morning she was feeling quite well. today, she states she is happy as hell to see my . she denies SI/SIBI/HI/AVH and is requesting to discharge from the hospital tomorrow. MD endorses this plan. Past Psychiatric History: hosps: unknown SA: all via overdose. 3 as a teen, 2 in her 20s, one 6 yrs ago. SIB: unknown outpt: therapist and prescriber at [facility]. has had therapist for 5 years, very attached. not so much for prescriber. Medical Evaluation Reviewed: Yes [facility] Medical History Mid-back pain, acute Chest pain PTSD (post-traumatic stress disorder) Bipolar 1 disorder Annual physical exam Surgical History Hx of cholecystectomy History of hysterectomy Family History: family on father's side has significant undiagnosed mental illness. Social History: lives in apartment with sailaja. since 2011. father, who lives in [place], has dementia. has a sister from whom she is estranged. Substance History: medical cannabis use, daily, for pain. utox POS. Trauma History: reported h/o trauma without elaboration Diagnostics Vital Signs (24Hr): Vital Signs - 24 hr 02/14/24 22:33 02/15/24 08:39 Temperature 98 F 98.1 F Pulse Rate 105 H 88 Respiratory Rate 16 14 Blood Pressure 113/83 137/64 Pulse Oximetry 97 99 Oxygen Delivery Method Room Air Room Air BMI result Body Mass Index 40.6 Labs 02/13/24 16:31 02/13/24 16:31 Labs: Laboratory Results - last 48 hr 02/13/24 02/13/24 02/14/24 16:26 16:31 10:12 WBC 9.3 RBC 5.14 Hgb 14.0 Hct 43.0 MCV 83.7 MCH 27.2 MCHC 32.6 RDW 12.8 Plt Count 303 MPV 9.6 Immature Gran % (Auto) 0.3 Neut % (Auto) 67.4 Lymph % (Auto) 25.6 [place] % (Auto) 5.8 Eos % (Auto) 0.6 Baso % (Auto) 0.3 Lymph # (Auto) 2.4 [place] # (Auto) 0.5 Eos # (Auto) 0.1 Baso # (Auto) 0.0 Abs Immat Gran (auto) 0.03 Absolute Neuts (auto) 6.3 Absolute Nucleated RBC 0.000 Nucleated RBC % (auto) 0.0 Sodium 139 Potassium 4.1 Chloride 103 Carbon Dioxide 29 Anion Gap 11 L BUN 12 Creatinine 0.79 Estim Creat Clear Calc 89.0 Estimated GFR > 60 Random Glucose 96 Estimat Average Glucose Hemoglobin A1c % Calcium 9.6 D Magnesium 1.9 Total Bilirubin 0.5 AST 13 ALT 13 Alkaline Phosphatase 59 Total Protein 8.2 H Albumin 4.2 Triglycerides Cholesterol LDL Cholesterol, Calc HDL Cholesterol Lipase 19 Vitamin B12 Folate TSH Free T4 Urine Color Yellow Urine Appearance Clear Urine pH 7.0 Ur Specific [place] 1.020 Urine Protein Negative Urine Glucose (UA) Negative Urine Ketones Negative Urine Blood Negative Urine Nitrite Negative Ur Leukocyte Esterase Trace H Urine RBC 0-2 Urine WBC 0-5 Ur Squamous Epith Cells 6-10 Urine Bacteria 1+ Hyaline Casts 0-2 Urine Test NEGATIVE Salicylates < 5.0 L Urine Opiates Screen Not Detected Urine Fentanyl Screen Not Detected Ur Barbiturates Screen Not Detected Ur Phencyclidine Scrn Not Detected Ur Amphetamines Screen Not Detected U Benzodiazepines Scrn Not Detected Urine Cocaine Screen Not Detected U Marijuana (THC) Screen POSITIVE H Ethyl Alcohol < 10 COVID-19 ([facility]ITH) Negative COVID-19 Clin Com See Note 02/15/24 08:43 WBC RBC Hgb Hct MCV MCH MCHC RDW Plt Count MPV Immature Gran % (Auto) Neut % (Auto) Lymph % (Auto) [place] % (Auto) Eos % (Auto) Baso % (Auto) Lymph # (Auto) [place] # (Auto) Eos # (Auto) Baso # (Auto) Abs Immat Gran (auto) Absolute Neuts (auto) Absolute Nucleated RBC Nucleated RBC % (auto) Sodium Potassium Chloride Carbon Dioxide Anion Gap BUN Creatinine Estim Creat Clear Calc Estimated GFR Random Glucose Estimat Average Glucose 105 Hemoglobin A1c % 5.3 Calcium Magnesium Total Bilirubin AST ALT Alkaline Phosphatase Total Protein Albumin Triglycerides 142 Cholesterol 213 H LDL Cholesterol, Calc 144 H HDL Cholesterol 41 Lipase Vitamin B12 448 Folate 13.5 TSH 2.46 Free T4 1.11 Urine Color Urine Appearance Urine pH Ur Specific [place] Urine Protein Urine Glucose (UA) Urine Ketones Urine Blood Urine Nitrite Ur Leukocyte Esterase Urine RBC Urine WBC Ur Squamous Epith Cells Urine Bacteria Hyaline Casts Urine Test Salicylates Urine Opiates Screen Urine Fentanyl Screen Ur Barbiturates Screen Ur Phencyclidine Scrn Ur Amphetamines Screen U Benzodiazepines Scrn Urine Cocaine Screen U Marijuana (THC) Screen Ethyl Alcohol COVID-19 ([facility]) COVID-19 Clin Com Meds/Allergies Meds Home Medications ?Medication ?Instructions ?Recorded ?Confirmed ?Type buspirone 30 mg tablet 30 mg PO BID 09/08/20 02/13/24 History bupropion HCl 300 mg 24 hr tablet, 300 mg PO QAM 01/12/23 02/13/24 History extended release (Wellbutrin XL) trazodone 100 mg tablet 100 mg PO BEDTIME PRN Insomnia 01/12/23 02/13/24 History sertraline 50 mg tablet (Zoloft) 50 mg PO DAILY 02/13/24 02/13/24 History Benadryl 50 mg PO DAILY 02/14/24 02/14/24 History One A Day Vitamin PO DAILY 02/14/24 History fexofenadine 30 mg tablet 30 mg PO DAILY 02/14/24 02/14/24 History Allergies Allergies Allergy/AdvReac Type Severity Reaction Status Date / Time cephalexin [CEPHALEXIN] Allergy Unknown Anaphylaxis Verified 02/13/24 16:07 ciprofloxacin [CIPROFLOXACIN] Allergy Unknown R side of Verified 02/13/24 16:07 body numbness clindamycin [CLINDAMYCIN] Allergy Unknown UNKNOWN Verified 02/13/24 16:07 Opioids - Morphine Analogues Allergy Unknown UNKNOWN Verified 02/13/24 16:07 [OPIOIDS - MORPHINE ANALOGUES] All Opiates Allergy Unknown Full body Uncoded 05/17/23 13:37 hives, hallucinations Mental Status Exam Mental Status Exam Narrative: adequately dressed and groomed. cooperative. hyperactive, positional changes, excessive smiling and positive affect. speech incr in rate, amount, loudness. nml latency and tone. thoughts linear and logical, without delusions or paranoia. affect full range, hyper-intense, non-labile. mood happy as hell to see my . denies SI/SIBI/HI/AVH. Assessment & Plan Assessment & Plan (1) PTSD (post-traumatic stress disorder): Status: Acute Code(s): F43.10 - Post-traumatic stress disorder, unspecified Assessment and Plan: R/O Borderline Personality Disorder Plan continue home medications. pt is feeling better and has well-established regular mental health care in the community. discharge to outpt care tomorrow as per pt request. Patient educated on: diagnosis and medication risk/benefits Reason for continued inpatient stay Substantial Risk for: stable for discharge Statement Statement: I have reviewed the history and physical and performed a pertinent examination on my patient. No changes have occurred unless specified. If the History and Physical was not performed prior to admission, the Hospitalist's service will be consulted for completing the admission physical. Time Spent With Patient Time: Total time managing care of this patient today __55__ minutes.
[2024-02-15 18:00] VITALS: BP 164/101; PULSE 100; RESP 18; TEMP 37; O2SAT 96
[2024-02-15 20:45] VITALS: BP 153/86; PULSE 94; RESP 18
[2024-02-15 21:57] VITALS: BP 138/77; PULSE 83; RESP 16; O2SAT 96
[2024-02-15] MEDS: traZODone HCL 100 MG TABLET PO (23:22)
[2024-02-16] MEDS: Magnesium Hydrox/Alum Hydrox 30 ML ORAL.SUSP PO (02:02)
--- NOTE | 2024-02-16 02:05 | PC.NURSE ---
Patient given Maalox for some mild heartburn.
[2024-02-16 07:40] VITALS: BP 147/105; PULSE 97; RESP 16; TEMP 36.8; O2SAT 99
[2024-02-16] MEDS: Sertraline HCL 50 MG TABLET PO (08:35)
[2024-02-16] MEDS: busPIRone HCl 10 MG TABLET 30 MG PO (08:39)
[2024-02-16] MEDS: buPROPion HCl XL 300 MG TAB.ER.24H PO (08:40)
[2024-02-16] MEDS: Ibuprofen 600 MG TABLET PO (08:53)
--- NOTE | 2024-02-16 10:10 | PM.PSYDC ---
DS: Providers Provider Date of Service: 02/16/24 Date of admission: 02/14/24 12:54 Primary care physician: Anika Mcgee MD DS: Diagnosis Discharge Diagnosis (1) PTSD (post-traumatic stress disorder): Status: Acute DS: Medications Discharge Medications Home Medications: Home Medications ?Medication ?Instructions ?Recorded ?Confirmed buspirone 30 mg tablet 30 mg PO BID 09/08/20 02/13/24 bupropion HCl 300 mg 24 hr tablet, 300 mg PO QAM 01/12/23 02/13/24 extended release (Wellbutrin XL) trazodone 100 mg tablet 100 mg PO BEDTIME PRN Insomnia 01/12/23 02/13/24 sertraline 50 mg tablet (Zoloft) 50 mg PO DAILY 02/13/24 02/13/24 Benadryl 50 mg PO DAILY 02/14/24 02/14/24 One A Day Vitamin PO DAILY 02/14/24 fexofenadine 30 mg tablet 30 mg PO DAILY 02/14/24 02/14/24 Mental Status Exam Mental Status Exam Narrative: adequately dressed and groomed. cooperative. hyperactive, positional changes, excessive smiling and positive affect. speech incr in rate, amount. nml loudness. nml latency and tone. thoughts linear and logical, without delusions or paranoia. affect full range, hyper-intense, non-labile. mood really good. denies SI/SIBI/HI/AVH. Data Data Completed and Pending Completed studies during hospitalization [Text1]: 02/13/24 02/13/24 02/14/24 16:26 16:31 10:12 WBC 9.3 RBC 5.14 Hgb 14.0 Hct 43.0 MCV 83.7 MCH 27.2 MCHC 32.6 RDW 12.8 Plt Count 303 MPV 9.6 Immature Gran % (Auto) 0.3 Neut % (Auto) 67.4 Lymph % (Auto) 25.6 [place] % (Auto) 5.8 Eos % (Auto) 0.6 Baso % (Auto) 0.3 Lymph # (Auto) 2.4 [place] # (Auto) 0.5 Eos # (Auto) 0.1 Baso # (Auto) 0.0 Abs Immat Gran (auto) 0.03 Absolute Neuts (auto) 6.3 Absolute Nucleated RBC 0.000 Nucleated RBC % (auto) 0.0 Sodium 139 Potassium 4.1 Chloride 103 Carbon Dioxide 29 Anion Gap 11 L BUN 12 Creatinine 0.79 Estim Creat Clear Calc 89.0 Estimated GFR > 60 Random Glucose 96 Estimat Average Glucose Hemoglobin A1c % Calcium 9.6 D Magnesium 1.9 Total Bilirubin 0.5 AST 13 ALT 13 Alkaline Phosphatase 59 Total Protein 8.2 H Albumin 4.2 Triglycerides Cholesterol LDL Cholesterol, Calc HDL Cholesterol Lipase 19 Vitamin B12 Folate TSH Free T4 Urine Color Yellow Urine Appearance Clear Urine pH 7.0 Ur Specific [place] 1.020 Urine Protein Negative Urine Glucose (UA) Negative Urine Ketones Negative Urine Blood Negative Urine Nitrite Negative Ur Leukocyte Esterase Trace H Urine RBC 0-2 Urine WBC 0-5 Ur Squamous Epith Cells 6-10 Urine Bacteria 1+ Hyaline Casts 0-2 Urine Test NEGATIVE Salicylates < 5.0 L Urine Opiates Screen Not Detected Urine Fentanyl Screen Not Detected Ur Barbiturates Screen Not Detected Ur Phencyclidine Scrn Not Detected Ur Amphetamines Screen Not Detected U Benzodiazepines Scrn Not Detected Urine Cocaine Screen Not Detected U Marijuana (THC) Screen POSITIVE H Ethyl Alcohol < 10 COVID-19 ([facility]) Negative COVID-19 Clin Com See Note 02/15/24 08:43 WBC RBC Hgb Hct MCV MCH MCHC RDW Plt Count MPV Immature Gran % (Auto) Neut % (Auto) Lymph % (Auto) [place] % (Auto) Eos % (Auto) Baso % (Auto) Lymph # (Auto) [place] # (Auto) Eos # (Auto) Baso # (Auto) Abs Immat Gran (auto) Absolute Neuts (auto) Absolute Nucleated RBC Nucleated RBC % (auto) Sodium Potassium Chloride Carbon Dioxide Anion Gap BUN Creatinine Estim Creat Clear Calc Estimated GFR Random Glucose Estimat Average Glucose 105 Hemoglobin A1c % 5.3 Calcium Magnesium Total Bilirubin AST ALT Alkaline Phosphatase Total Protein Albumin Triglycerides 142 Cholesterol 213 H LDL Cholesterol, Calc 144 H HDL Cholesterol 41 Lipase Vitamin B12 448 Folate 13.5 TSH 2.46 Free T4 1.11 Urine Color Urine Appearance Urine pH Ur Specific [place] Urine Protein Urine Glucose (UA) Urine Ketones Urine Blood Urine Nitrite Ur Leukocyte Esterase Urine RBC Urine WBC Ur Squamous Epith Cells Urine Bacteria Hyaline Casts Urine Test Salicylates Urine Opiates Screen Urine Fentanyl Screen Ur Barbiturates Screen Ur Phencyclidine Scrn Ur Amphetamines Screen U Benzodiazepines Scrn Urine Cocaine Screen U Marijuana (THC) Screen Ethyl Alcohol COVID-19 ([facility]) COVID-19 Clin Com DS: Summary Hospital Course Hospital Course: per CARE team ulises sanjay presented 3 days [employer]OMMET WORK[employer] and was sent home with recommendation to return PRN, which she subsequently did. she reported worsened depression as well as SI with plan but no intent. she presented as tearful and self-critical, describing herself as worthless and a burden. 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 on interview with , pt states she has been very emotional recently, facing psychosocial stressors of her father's illness, money troubles, and her 's being unhappy at his job and talking about changing jobs. she states she experiences SI on a regular basis and it's always been the same way - via overdose - so that's not even a question. that's the plan. but she says she has no intention of acting on her thoughts. she presents as quite bright and says she is feeling much better and does not want to remain in the hospital. she has a standing weekly appointment with her therapist, whom she cherishes, and she can contact her prescriber for an appointment in the near future. although she has some ideas about med changes she might think would be helpful, she is content to wait to see her outpatient prescriber to discuss. she states her recent emotional lability is strange for her, but once she got into the pod and cried overnight, when she got up the next morning she was feeling quite well. today, she states she is happy as hell to see my . she denies SI/SIBI/HI/AVH and is requesting to discharge from the hospital tomorrow. endorses this plan. Past Psychiatric History: hosps: unknown SA: all via overdose. 3 as a teen, 2 in her 20s, one 6 yrs ago. SIB: unknown outpt: therapist and prescriber at [facility]. has had therapist for 5 years, very attached. not so much for prescriber. Medical Evaluation Reviewed: Yes [facility] Medical History Mid-back pain, acute Chest pain PTSD (post-traumatic stress disorder) Bipolar 1 disorder Annual physical exam Surgical History Hx of cholecystectomy History of hysterectomy Family History: family on father's side has significant undiagnosed mental illness. Social History: lives in apartment with sailaja. since 2011. father, who lives in [place], has dementia. has a sister from whom she is estranged. Substance History: medical cannabis use, daily, for pain. utox POS. Trauma History: reported h/o trauma without elaboration Plan 02/14: continue home medications. pt is feeling better and has well-established regular mental health care in the community. discharge to outpt care tomorrow as per pt request. 02/15: stable. meds reviewed and reconciled. aftercare in place. discharged as per plan. Time Spent with Patient Time attestation: Total time managing care of this patient today __35__ minutes. Discharge Plan Discharge Anticipated Discharge Date/Time: 02/16/24 11:00 Patient Disposition: Home, Self-Care Discharge Diagnosis: PTSD, Chronic Referrals: Erin Saul (Therapy) [Other] - 02/21/24 3:00 pm (TELEHEALTH APPOINTMENT) Dr. Charly Santo (Psychiatry) [Other] - 03/07/24 10:30 am (TELEHEALTH APPOINTMENT) Anika Mcgee MD [Primary Care Provider] - 1 Week (PCP will contact patient with follow up appt.) Discharge Medications: Continued sertraline [Zoloft] 50 mg tablet 50 mg PO DAILY fexofenadine 30 mg Tablet 30 mg PO DAILY One A Day Vitamin PO DAILY Benadryl tablet 50 mg PO DAILY buspirone 30 mg tablet 30 mg PO BID trazodone 100 mg tablet 100 mg PO BEDTIME PRN (Reason: Insomnia) bupropion HCl [Wellbutrin XL] 300 mg tablet extended release 24 hr 300 mg PO QAM Discharge Orders: Discharge Order (Routine); Ordered 02/16/24 Ordered By: Krishna Morley Diet: Advance to usual diet Activity on Discharge: As tolerated Stand Alone Forms: Patient Portal Discharge page, Community Support Print Language: Cook Islander Care Plan Goals: remain safe and stable in the outpatient treatment setting Health Concerns: none Plan of Treatment: take medications as prescribed, attend appointments as scheduled Assessment: not at imminent risk of harm to self or others Discharge Date/Time: 02/16/24 10:58
== END 2024-02-16 10:58 | disposition home or self-care (01) | DRG 755 ==
LOC: HO.ED 02-14 08:12 → HO.PADLT16 02-14 13:34
PROVIDERS: Physician Assistant Medical; Admitting Provider Psychiatry & Neurology Psychiatry; Emergency Provider Emergency Medicine; PCP Internal Medicine; Visit Provider Psychiatry & Neurology Psychiatry
DX: F43.12 Post-traumatic stress disorder, chronic (principal); R45.851 Suicidal ideations; Z20.822 Contact with and (suspected) exposure to COVID-19; Z87.891 Personal history of nicotine dependence; Z79.899 Other long term (current) drug therapy
CPT/HCPCS: 36415; 80053; 80061; 80179; 80307; 81001; 81025; 82607; 82746; 83036; 83690; 83735; 84439; 84443; 85025; 87635; 90686; 93005; 99285; S9485

== ENCOUNTER → 2024-02-14 09:28 | Outpatient (BNV) | payer OTHER, SELFPAY | PROVIDERS: Admitting Provider Psychiatry & Neurology Psychiatry; Emergency Provider Emergency Medicine; PCP Internal Medicine; Visit Provider Internal Medicine Cardiovascular Disease | DX: I45.81 Long QT syndrome (principal) | CPT/HCPCS: 93010 ==

== ENCOUNTER → 2024-02-14 12:54 | Outpatient (BNV) | payer OTHER, SELFPAY | PROVIDERS: Admitting Provider Psychiatry & Neurology Psychiatry; Emergency Provider Emergency Medicine; PCP Internal Medicine; Visit Provider Psychiatry & Neurology Psychiatry | DX: F43.11 Post-traumatic stress disorder, acute (principal) | CPT/HCPCS: 90792; 99239 ==

== ENCOUNTER 2024-03-27 12:54 | Outpatient (AMB) | payer OTHER, SELFPAY ==
[2024-03-27 13:03] VITALS: BP 112/72; PULSE 101; O2SAT 97; BMI 41.4
--- NOTE | 2024-03-27 13:03 | MHC.PC.OV ---
Vital Signs 03/27/24 13:03 Height 5 ft Weight 212 lb BMI 41.4 BP 112/72 Blood Pressure Location Lt brachial Position Sitting Pulse 101 H Pulse Source Pulse Oximeter Pulse Oximetry (%) 97 Oxygen Delivery Method Room Air Intake Visit Reasons: High bp issues, and pain management Intake Note: Pt is here today for a sick visit. Pt c/o pain from Fibromyalgia. Allergies cephalexin [CEPHALEXIN] Allergy (Unknown, Verified 03/27/24 13:07) Anaphylaxis ciprofloxacin [CIPROFLOXACIN] Allergy (Unknown, Verified 03/27/24 13:07) R side of body numbness clindamycin [CLINDAMYCIN] Allergy (Unknown, Verified 03/27/24 13:07) UNKNOWN Opioids - Morphine Analogues [OPIOIDS - MORPHINE ANALOGUES] Allergy (Unknown, Verified 03/27/24 13:07) UNKNOWN All Opiates Allergy (Unknown, Uncoded 03/27/24 13:07) Full body hives, hallucinations Medication List - Last Reconciled 03/27/24 by Anika Mcgee MD baclofen 10 mg PO BEDTIME [Benadryl 50 mg PO DAILY] bupropion HCl XL (Wellbutrin XL) 300 mg PO QAM buspirone 30 mg PO BID fexofenadine 30 mg PO DAILY lorazepam (Ativan) 2 mg PO DAILY PRN lurasidone (Latuda) 20 mg PO DAILY meloxicam 15 mg PO DAILY [One A Day Vitamin PO DAILY] quetiapine (Seroquel) 150 mg PO BEDTIME trazodone 100 mg PO BEDTIME PRN Tobacco use date assessed: 03/27/24 Dental Screening Dental Screen Date: 03/27/24 Did you have a dental visit in the last 12 months?: Yes Did you have a dental problem in the last 6 months where you did not have access to dental care?: No Was dental information given to patient?: Patient has dentist HPI High bp issues, and pain management HPI Details Pt presents for f/u . Pt c/o recurrent and chronic LBP for at least 10 years. Patient used to see a pain management and was taking gabapentin with good relief. The lower back pain got worse during the hospitalization for major depression bipolar last month. She denies pain radiating to lower extremities but reports bilateral feet tingling on and off. Patient denies weakness in extremities change in bowel or bladder function. During hospitalization for manic episode she was noted to have elevated blood pressure. Patient denies chest pain shortness for breath palpitations. She follows up with Psychiatry and will be starting Latuda. Pt used to smoke marijuana but stopped 6 weeks ago. She thinks marijuana was helping her chronic back pain and fibromyalgia. 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 [facility] Medical History (Updated 03/27/24 @ 14:01 by Anika Mcgee MD) Mid-back pain, acute Chest pain PTSD (post-traumatic stress disorder) Bipolar 1 disorder Annual physical exam Surgical History Hx of cholecystectomy History of hysterectomy Family History Father HTN (hypertension) Mother No problems noted. Maternal Uncle Diabetes mellitus Sister No problems noted. Social History Household Members: Spouse and Family Household Members Other:: Mom and Housing: House Do you presently have visiting nurse or other home services: No Patient Tobacco Use Status: Former Tobacco user Quit Date: 10/2014 Tobacco use type: Cigarette Cigarette Packs Per Day: 2 Cigarettes Per Day: 40.0 Years Smoked: 26 e-Cigarette/Vaping Use: Never Used Second Hand Smoke Exposure: No Substance Use Type: Marijuana service: No Current occupational status: unemployed Sexual orientation: Straight/Heterosexual Cognitive needs: No Hearing needs: No Vision needs: Yes Questionnaire Thrive Questionnaire Date Thrive assessed: 02/15/24 AUDIT C Alcohol Use Questionnaire (AUDIT-C) 1. How often do you have a drink containing alcohol?: Never 3. How often do you have six or more drinks on one occasion?: Never Total Score: 0 Review of Systems Const All systems reviewed & are unremarkable except as noted in HPI and below Card Reports no additional complaints Resp Reports no additional complaints GI Reports no additional complaints Reports no additional complaints Physical exam (Primary Care) Vital Signs: Last Vital Signs Pulse 101 H 03/27/24 13:03 BP 112/72 03/27/24 13:03 Pulse Ox 97 03/27/24 13:03 Oxygen Delivery Method Room Air 03/27/24 13:03 BMI result Body Mass Index 41.4 Tobacco/Smoking Status: Tobacco use Status Tobacco use date assessed 03/27/24 03/27/24 13:11 Patient Tobacco Use Status Former Tobacco user 03/27/24 13:09 Tobacco use type Cigarette 03/27/24 13:09 e-Cigarette/Vaping Use Never Used 03/27/24 13:09 Thrive Assessment: Date of Thrive Assessment Date Thrive assessed 02/15/24 03/27/24 13:09 Const General: no acute distress Eyes General: appearance normal, both eyes and all related structures Neck Neck: Yes supple Resp Effort & Inspection: normal respiratory effort Auscultation: clear to auscultation bilaterally Cardio Rhythm: regular rhythm Heart sounds: S1 normal heart sound present and S2 normal heart sound present Back/Spine/Pelvis Other: There is decreased range of motion lumbar spine, spinal and paraspinal tenderness in lower lumbar region, straight leg rising 90 degrees bilaterally. Deep tendon reflexes 2+ bilaterally, heel and toe walk intact bilaterally Assessment and Plan Assessment & Plan (1) Lower back pain: Comment: Disc herniation diagnosed about 2013, used to follow-up with the pain management Code(s): M54.50 - Low back pain, unspecified Plan: Check x-ray of lumbar spine, meloxicam and baclofen prescribed and and patient is referred to physical therapy (2) Fibromyalgia: Code(s): M79.7 - Fibromyalgia Plan: Patient requested referral to Rheumatology (3) Bipolar 1 disorder: Comment: f/u psychiatrist Code(s): F31.9 - Bipolar disorder, unspecified Plan: Continue current medications and follow-up with the psychiatrist (4) Elevated blood pressure reading without diagnosis of hypertension: Code(s): R03.0 - Elevated blood-pressure reading, without diagnosis of hypertension Plan: Low-sodium diet increase exercise weight loss discussed with the patient she will monitor blood pressure at home Orders: Orders XR lumbar spine 2-3V Today M54.50 - Low back pain, unspecified PT Evaluation and Treatment Today M54.50 - Low back pain, unspecified Referrals Rheumatology Referral M79.7 - Fibromyalgia Medications: New baclofen 10 mg PO BEDTIME 30 tabs 0RF baclofen 10 mg PO BEDTIME 30 tabs 0RF lurasidone (Latuda) must administer with food (at least 350 calories) 20 mg PO DAILY 90 tabs 0RF meloxicam 15 mg PO DAILY 14 tabs 0RF baclofen 10 mg PO BEDTIME 30 tabs 0RF meloxicam 15 mg PO DAILY 14 tabs 0RF Coding Level of Care Code Est Pt Level 4 (49383) Diagnoses Lower back pain M54.50 Fibromyalgia M79.7 Bipolar 1 disorder F31.9 Elevated blood pressure reading without diagnosis of hypertension R03.0
== END 2024-03-27 14:02 | disposition home or self-care (01) ==
PROVIDERS: PCP Internal Medicine; Visit Provider Internal Medicine
DX: M54.50 Low back pain, unspecified (principal); M79.7 Fibromyalgia; F31.9 Bipolar disorder, unspecified; R03.0 Elevated blood-pressure reading, without diagnosis of hypertension
CPT/HCPCS: 99214

== ENCOUNTER 2024-03-27 13:45 | Outpatient (REF) | payer OTHER, SELFPAY ==
--- NOTE | ~2024-03-27 | XR_ITS ---
EXAMINATION: XR LUMBOSACRAL SPINE CLINICAL INFORMATION: Low back pain unspecified. COMPARISON: Thoracic spine 02/16/2021. TECHNIQUE: 3 views of the lumbosacral spine. FINDINGS: Slight levoscoliosis of the lumbar spine. Facet arthritis in the lower lumbar spine. Degenerative changes in the bilateral sacroiliac joints. There is transitional anatomy with hemisacralization on the left. Mild multilevel lumbar spondylosis. XR/XR lumbar spine 2-3V IMPRESSION: 1. Mild multilevel lumbar spondylosis. 2. Facet arthritis in the lower lumbar spine. 3. Degenerative changes noted bilateral sacroiliac joints.
== END 2024-03-27 13:46 | disposition home or self-care (01) ==
LOC: HO.HMGCX 13:45
PROVIDERS: PCP Internal Medicine; Visit Provider Internal Medicine
DX: M54.50 Low back pain, unspecified (principal)
CPT/HCPCS: 72100

== ENCOUNTER 2024-04-25 15:00 | Outpatient (RCR) | payer OTHER, SELFPAY ==
--- NOTE | 2024-04-08 14:57 | MHC.PT.EP ---
[facility] [place] Office [place] Office [place] Office [address] Bill Mendoza [address] [phone] F: [phone] F: [phone] F: [phone] F: [phone] Physical Therapy Plan of Care Date of Evaluation: 04/08/24 Date of Surgery: n/a Diagnosis: low back pain Assessment: Patient is a 49 year old female presenting to PT with complaints of pain in her low back. Pt reports onset of pain began February 2024 due to sitting on hard surfaces during hospitalization. She presents today with impairments in pain, ROM, hip strength, posture. Pt's current occupation is none, with baseline physical activities including ADLs, standing. 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 Clinical presentation today is most consistent with signs and sx associated with low back pain and pt will benefit from skilled PT 2 week x 4 weeks to address the following problems and impairments noted upon evaluation: pain, ROM, hip strength, posture. These problems limit the patient with the following functional activities: ADLs, standing, sitting. The prescribed treatment plan of care is medically necessary. Co-morbidities of bipolar, PTSD, fibromyalgia were identified and taken into considerations of plan of care. Pt was educated on HEP, role of PT, prognosis, POC. Frequency and Duration: The patient will be seen 2 x week x 4 weeks Short Term Goals: Pt will demonstrate ability to move through available range with min to no pain in 2 weeks. Pt will demonstrate improved hip MMT strength by 1/3 grade in 2 weeks for improved lumbopelvic stability. Group Home Goals: Pt will demonstrate improved Randy score by 10% in 4 weeks for improved functional mobility. Pt will demonstrate ability to complete ADLs with min to no pain in 4 weeks for return to PLOF. 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 Treatment Plan: Modalities to reduce pain, spasms and effusion. Manual therapy to restore motion and function. Therapeutic exercise to improve strength and flexibility. Neuromuscular re-education for posture and balance. Therapeutic activities to return to functional activities of daily living. Electronically signed by: Jazzmine Whitney, PT, DPT, ATC Please sign and return to therapist. Thank you for your referral.
--- NOTE | 2024-05-28 08:31 | MHC.PT.DC ---
[facility] [place] Office [place] Office [place] Office [address]endoza [address] [phone] F: [phone] F: [phone] F: [phone] F: [phone] Physical Therapy Discharge Report Diagnosis: low back pain Date of Surgery: n/a Date of Evaluation: 04/08/24 Date of Discharge: 05/28/24 Treatments to Date: 2 Cancellations to Date: No Shows to Date: Discharge Status: Discharge Summary: Pt has not attended skilled PT in >30 days and therefore to be d/c as POC has . Electronically signed by: Jazzmine Whitney, PT, DPT, ATC Please sign and return to therapist. Thank you for your referral.
== END 2024-05-28 08:32 | disposition home or self-care (01) ==
LOC: HO.PTCHIC 15:00
PROVIDERS: PCP Internal Medicine; Visit Provider Internal Medicine
DX: M54.50 Low back pain, unspecified (principal)
CPT/HCPCS: 97110; 97162

== ENCOUNTER 2024-05-23 11:55 | Outpatient (AMB) | payer OTHER, SELFPAY ==
[2024-05-23 12:00] VITALS: BP 104/68; PULSE 83; O2SAT 97; BMI 42.6
--- NOTE | 2024-05-23 12:00 | A.OFFPC_ITS ---
Vital Signs 05/23/24 12:00 Height 5 ft Weight 218 lb BMI 42.6 BP 104/68 Blood Pressure Location Lt brachial Position Sitting Pulse 83 Pulse Source Pulse Oximeter Pulse Oximetry (%) 97 Oxygen Delivery Method Room Air Intake Visit Reasons: Physical Intake Note: Pt is here today for PE. Pt states that she needs immunization records and titers done for school Allergies cephalexin [CEPHALEXIN] Allergy (Unknown, Verified 05/23/24 12:08) Anaphylaxis ciprofloxacin [CIPROFLOXACIN] Allergy (Unknown, Verified 05/23/24 12:08) R side of body numbness clindamycin [CLINDAMYCIN] Allergy (Unknown, Verified 05/23/24 12:08) UNKNOWN Opioids - Morphine Analogues [OPIOIDS - MORPHINE ANALOGUES] Allergy (Unknown, Verified 05/23/24 12:08) UNKNOWN All Opiates Allergy (Unknown, Uncoded 05/23/24 12:08) Full body hives, hallucinations Medication List - Last Reconciled 05/23/24 by Anika Mcgee MD [Benadryl 50 mg PO DAILY] bupropion HCl XL (Wellbutrin XL) 300 mg PO QAM buspirone 30 mg PO BID fexofenadine 30 mg PO DAILY ibuprofen 800 mg PO BID lorazepam (Ativan) 2 mg PO DAILY PRN lurasidone (Latuda) 40 mg PO DAILY [One A Day Vitamin PO DAILY] trazodone 200 mg PO BEDTIME Tobacco use date assessed: 05/23/24 Dental Screening Dental Screen Date: 03/27/24 HPI Physical HPI Details Pt presents for PE. [facility] Medical History Mid-back pain, acute Chest pain PTSD (post-traumatic stress disorder) Bipolar 1 disorder Annual physical exam Surgical History Hx of cholecystectomy History of hysterectomy Family History Father HTN (hypertension) Mother No problems noted. Maternal Uncle Diabetes mellitus Sister No problems noted. Social History Household Members: Spouse and Family Household Members Other:: Mom and Housing: House Do you presently have visiting nurse or other home services: No Patient Tobacco Use Status: Former Tobacco user Tobacco use type: Cigarette Cigarette Packs Per Day: 2 Cigarettes Per Day: 40.0 Years Smoked: 26 Packs Per Year: 52 Packs per year/per ci.00 e-Cigarette/Vaping Use: Never Used Second Hand Smoke Exposure: No Substance Use Type: Marijuana service: No Current occupational status: unemployed Sexual orientation: Straight/Heterosexual Cognitive needs: No Hearing needs: No Vision needs: Yes Questionnaire PHQ-9 Over the last 2 weeks, how often have you been bothered by any of the following problems? 1. Little interest or pleasure in doing things: more than half the days 2. Feeling down, depressed, or hopeless: several days 3. Trouble falling or staying asleep, or sleeping too much: nearly every day 4. Feeling tired or having little energy: nearly every day 5. Poor appetite or overeating: nearly every day 6. Feeling bad about yourself - or that you are a failure or have let yourself or your family down: nearly every day 7. Trouble concentrating on things, such as reading the newspaper or watching television: several days 8. Moving or speaking so slowly that other people could have noticed. Or the opposite - being so fidgety or restless that you have been moving around a lot more than usual: not at all 9. Thoughts that you would be better off or of hurting yourself in some way: not at all Total score: 16 Depression Screening Interpretation: Positive (Patient is established with a psychiatrist and therapist) Depression Screening Follow-up: Existing condition and In treatment Depression Screening Done: Yes Source: Developed by Drs. Pal Virgen, Rasheeda Green, Shaheen Harrington and colleagues, with an educational mehdi from [employer]. Thrive Questionnaire Date Thrive assessed: 05/23/24 I am a: Patient What is your living situation today?: I have a steady place to live Within the past 12 months, did the food you bought not last and you didn't have the money to get more?: Sometimes True Within the past 12 months, did you worry whether your food would run out before you got money to buy more?: Sometimes True Do you have trouble paying for medicines?: No Do you have trouble getting transportation to medical appointments?: No Do you have trouble paying your heating and electricity bill?: No Do you have trouble taking care of your child, family member or friend?: No Do you have trouble with day-to-day activities such as bathing, preparing meals, shopping, managing finances, etc.?: No Are you currently unemployed and looking for a job?: No Are you interested in more education?: Yes Please select the resources that you would like help with: Housing/Fci Currently or been in a relationship where the following occur: No concerns reported THRIVE Score: 2 AUDIT C Alcohol Use Questionnaire (AUDIT-C) 1. How often do you have a drink containing alcohol?: Never 3. How often do you have six or more drinks on one occasion?: Never Total Score: 0 MARIO-7 AMB Questionnaire MARIO-7 Date MARIO - 7 assessed: 05/23/24 Feeling nervous, anxious, or on edge: 1 = Several days Not being able to stop or control worryin = Several days Worrying too much about different things: 1 = Several days Trouble relaxin = Several days Being so restless that it is hard to sit still: 1 = Several days Becoming easily annoyed or irritable: 1 = Several days Feeling afraid as if something awful might happen: 1 = Several days Total MARIO-7 score (0-4 normal; 5-9 mild; 10-14 moderate; 15-21 severe): 7 Source: Developed by Drs. Pal Virgen, Rasheeda Green, Shaheen Harrington and colleagues, with an educational mehdi from [employer]. Review of Systems Const All systems reviewed & are unremarkable except as noted in HPI and below Eyes Reports no additional complaints ENT Reports no additional complaints Card Reports no additional complaints Resp Reports no additional complaints GI Reports no additional complaints Reports no additional complaints Physical exam (Primary Care) Vital Signs: Last Vital Signs Pulse 83 05/23/24 12:00 BP 104/68 05/23/24 12:00 Pulse Ox 97 05/23/24 12:00 Oxygen Delivery Method Room Air 05/23/24 12:00 BMI result Body Mass Index 42.6 Tobacco/Smoking Status: Tobacco use Status Tobacco use date assessed 05/23/24 05/23/24 12:12 Patient Tobacco Use Status Former Tobacco user 05/23/24 12:00 Tobacco use type Cigarette 05/23/24 12:00 e-Cigarette/Vaping Use Never Used 05/23/24 12:00 PHQ-9: PHQ-9 Score PHQ-9: Total score 16 05/23/24 12:12 Depression Screening Interpretation: Positive (Patient is established with a psychiatrist and therapist) Depression Screening Follow-up: Existing condition and In treatment Thrive Assessment: Date of Thrive Assessment Date Thrive assessed 05/23/24 05/23/24 12:12 Currently or been in a relationship where the following occur: No concerns reported Const General: no acute distress HENMT Head: Yes normal to inspection Face and sinus: Yes normal facial exam Mouth: Normal oral and palatal mucosa present Throat: Yes posterior oropharynx normal Eyes General: appearance normal, both eyes and all related structures Neck Neck: Yes no lymphadenopathy and Yes supple Resp Effort & Inspection: normal respiratory effort Auscultation: clear to auscultation bilaterally Cardio Rhythm: regular rhythm Heart sounds: S1 normal heart sound present and S2 normal heart sound present GI Inspection: Yes normal to inspection Palpation (GI): Soft to palpation Percussion: Yes normal to percussion Auscultation: normal bowel sounds Assessment and Plan Assessment & Plan (1) Annual physical exam: Code(s): Z00.00 - Encounter for general adult medical examination without abnormal findings Plan: Well-balanced diet regular physical activity weight loss discussed with the patient she will have a fasting blood work today. Patient will schedule mammogram and will be referred to GI for colonoscopy (2) Vitamin D deficiency: Code(s): E55.9 - Vitamin D deficiency, unspecified Plan: Continue vitamin-D (3) Hyperglycemia: Code(s): R73.9 - Hyperglycemia, unspecified Plan: ADA diet regular exercise weight loss discussed with the patient. Orders: Orders Rubeola IgG (Measles) Today E55.9 - Vitamin D deficiency, unspecified, R73.9 - Hyperglycemia, unspecified, Z00.00 - Encounter for general adult medical examination without abnormal findings Rubella IgG Antibody Today E55.9 - Vitamin D deficiency, unspecified, R73.9 - Hyperglycemia, unspecified, Z00.00 - Encounter for general adult medical examination without abnormal findings Lipid Panel Today E55.9 - Vitamin D deficiency, unspecified, R73.9 - Hyperglycemia, unspecified, Z00.00 - Encounter for general adult medical examination without abnormal findings Comprehensive [place]. Panel Fast Today E55.9 - Vitamin D deficiency, unspecified, R73.9 - Hyperglycemia, unspecified, Z00.00 - Encounter for general adult medical examination without abnormal findings Complete Blood Count Auto Diff Today E55.9 - Vitamin D deficiency, unspecified, R73.9 - Hyperglycemia, unspecified, Z00.00 - Encounter for general adult medical examination without abnormal findings Complete Blood Count Auto Diff 1 Year F31.9 - Bipolar disorder, unspecified, Z00.00 - Encounter for general adult medical examination without abnormal findings Vitamin D 25-OH Total 1 Year F31.9 - Bipolar disorder, unspecified, Z00.00 - Encounter for general adult medical examination without abnormal findings Varicella IgG Antibody Today E55.9 - Vitamin D deficiency, unspecified, R73.9 - Hyperglycemia, unspecified, Z00.00 - Encounter for general adult medical examination without abnormal findings Mumps Virus IgG Antibody Today E55.9 - Vitamin D deficiency, unspecified, R73.9 - Hyperglycemia, unspecified, Z00.00 - Encounter for general adult medical examination without abnormal findings Hemoglobin A1c Today R73.9 - Hyperglycemia, unspecified Comprehensive [place]. Panel Fast 1 Year F31.9 - Bipolar disorder, unspecified, Z00.00 - Encounter for general adult medical examination without abnormal findings Lipid Panel 1 Year F3.9 - Bipolar disorder, unspecified, Z00.00 - Encounter for general adult medical examination without abnormal findings TSH reflex Free T4 1 Year F3.9 - Bipolar disorder, unspecified, Z00.00 - Encounter for general adult medical examination without abnormal findings Hemoglobin A1c 1 Year F3.9 - Bipolar disorder, unspecified, Z00.00 - Encounter for general adult medical examination without abnormal findings Referrals Gastroenterology Referral Z00.00 - Encounter for general adult medical examination without abnormal findings Medications: New albuterol sulfate 90 mcg/actuation 2 puffs inhalation Q6H PRN 8.5 grams 0RF shortness of breath or wheezing Changed From lurasidone (Latuda) must administer with food (at least 350 calories) 20 mg PO DAILY 90 tabs 0RF To lurasidone (Latuda) must administer with food (at least 350 calories) 40 mg PO DAILY Coding Level of Care Code Est Pt Prev Care 40-64y(96767) Diagnoses Annual physical exam Z00.00 Vitamin D deficiency E55.9 Hyperglycemia R73.9
== END 2024-05-23 13:10 | disposition home or self-care (01) ==
PROVIDERS: PCP Internal Medicine; Visit Provider Internal Medicine
DX: Z00.00 Encounter for general adult medical examination without abnormal findings (principal); E55.9 Vitamin D deficiency, unspecified; R73.9 Hyperglycemia, unspecified
CPT/HCPCS: 99396

== ENCOUNTER 2024-05-23 13:12 | Outpatient (REF) | payer OTHER, SELFPAY ==
[2024-05-23 16:00] LABS: MANUAL DIFF FLAG NO
[2024-05-23 16:01] LABS: Basophils Percent Auto 0.5 % (0-2); Eosinophils Absolute Auto 0.1 X10*3/uL (0.0-0.4); Eosinophils Percent Auto 1.2 % (0-4); Hematocrit 39.3 % (37.0-47.0); Hemoglobin 13.1 g/dl (12.0-16.0); Imm Gran Abs Auto 0.02 X10*3/uL (0.00-0.03); Imm Gran Pct Auto 0.3 % (0.0-0.4); Lymphocytes Percent Auto 25.8 % (20-40); Mean Corpuscular HGB Conc 33.3 g/dl (31.0-35.0); Mean Corpuscular Hemoglobin 28.6 pg (27.0-33.0); Mean Corpuscular Volume 85.8 fL (80.0-98.0); Mean Platelet Volume 9.9 fL (9.4-12.3); Monocytes Absolute Auto 0.5 X10*3/uL (0.1-1.2); Monocytes Percent Auto 6.3 % (2-11); Neutrophils Percent Auto 65.9 % (45-73); Platelet Count 325 X10*3/uL (160-400); Red Blood Count 4.58 X10*6/uL (4.20-5.50); Red Cell Distribution Width 12.8 % (11.0-16.0); White Blood Count 7.6 X10*3/uL (4.8-10.8)
[2024-05-23 16:14] LABS: Alanine Aminotransferase 17 U/L (0-31); Albumin Level 4.2 g/dL (3.5-5.0); Alkaline Phosphatase 56 U/L (39-117); Anion Gap 13 (12-20); Aspartate Amino Transferase 14 U/L (5-31); Bilirubin Total 0.6 mg/dL (0.0-1.0); Blood Urea Nitrogen 14 mg/dL (9-16); Calcium 9.3 mg/dL (8.4-10.2); Carbon Dioxide 28 mmol/L (22-29); Chloride 102 mmol/L (96-108); Cholesterol 214 mg/dL (<200); Estimated Glomerular Filt Rate > 60; Glucose Fasting 102 mg/dL (60-99); HDL Cholesterol 42 mg/dL (>40); LDL Cholesterol Calculated 139 mg/dL (<100); Potassium 4.5 mmol/L (3.3-5.1); Sodium 138 mmol/L (135-145); Total Protein 7.6 g/dL (6.5-8.0); Triglycerides 166 mg/dL (<150)
[2024-05-23 16:21] LABS: Estimated Average Glucose 94 mg/dL; Hemoglobin A1c % 4.9 % (<6.0)
== END 2024-05-23 13:13 | disposition home or self-care (01) ==
LOC: HO.HMGCLDS 13:12
PROVIDERS: PCP Internal Medicine; Visit Provider Internal Medicine
DX: Z00.00 Encounter for general adult medical examination without abnormal findings (principal); E55.9 Vitamin D deficiency, unspecified; R73.9 Hyperglycemia, unspecified
CPT/HCPCS: 36415; 80053; 80061; 83036; 85025; 86735; 86762; 86765; 86787

== ENCOUNTER 2024-06-19 14:55 | Outpatient (AMB) | payer OTHER, SELFPAY ==
[2024-06-19 14:57] VITALS: BP 132/72; PULSE 80; O2SAT 97; BMI 43.4
--- NOTE | 2024-06-19 14:57 | MHC.OFFVIS ---
Vital Signs 06/19/24 14:57 Height 5 ft Weight 222 lb 3.615 oz BMI 43.4 BP 132/72 Blood Pressure Location Lt brachial Position Sitting Pulse 80 Pulse Source Pulse Oximeter Pulse Oximetry (%) 97 Oxygen Delivery Method Room Air Intake Visit Reasons: FM/CM Intake Note: Patient is here as a new patient referred by Dr. Mcgee for Fibromyalgia. Allergies cephalexin [CEPHALEXIN] Allergy (Unknown, Verified 06/19/24 15:05) Anaphylaxis ciprofloxacin [CIPROFLOXACIN] Allergy (Unknown, Verified 06/19/24 15:05) R side of body numbness clindamycin [CLINDAMYCIN] Allergy (Unknown, Verified 06/19/24 15:05) UNKNOWN Opioids - Morphine Analogues [OPIOIDS - MORPHINE ANALOGUES] Allergy (Unknown, Verified 06/19/24 15:05) UNKNOWN All Opiates Allergy (Unknown, Uncoded 06/19/24 15:05) Full body hives, hallucinations Medication List - Last Reconciled 06/19/24 by Israel Shook MD albuterol sulfate 90 mcg/actuation 2 puffs inhalation Q6H PRN [Benadryl 50 mg PO DAILY] bupropion HCl XL (Wellbutrin XL) 300 mg PO QAM buspirone 30 mg PO BID fexofenadine 30 mg PO DAILY ibuprofen 800 mg PO BID lorazepam (Ativan) 2 mg PO DAILY PRN lurasidone (Latuda) 40 mg PO DAILY [One A Day Vitamin PO DAILY] trazodone 200 mg PO BEDTIME HPI Comments Details: This is a 49-year-old female who presents for evaluation of fibromyalgia. She has history of bipolar disorder. 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 She states that blood work and x-rays were done and autoimmune rheumatic disease was found, she was found to have osteoarthritis of her spine as well as hypermobility and fibromyalgia. She has been taking gabapentin 300 mg nightly which did help somewhat. She states that she had a sleep study around 2012 and it showed mild sleep apnea and no CPAP was prescribed. She states that her Cat wakes her up multiple times at night. Patient denies any history of DVT/PE. [facility] Medical History Elevated blood pressure reading without diagnosis of hypertension Mid-back pain, acute Chest pain PTSD (post-traumatic stress disorder) Bipolar 1 disorder Annual physical exam Surgical History Hx of cholecystectomy History of hysterectomy Family History Father HTN (hypertension) Mother No problems noted. Maternal Uncle Diabetes mellitus Sister No problems noted. Social History Household Members: Spouse and Family Household Members Other:: Mom and Housing: House Do you presently have visiting nurse or other home services: No Patient Tobacco Use Status: Former Tobacco user Tobacco use type: Cigarette Cigarette Packs Per Day: 2 Cigarettes Per Day: 40.0 Years Smoked: 26 e-Cigarette/Vaping Use: Never Used Second Hand Smoke Exposure: No Substance Use Type: Marijuana service: No Current occupational status: unemployed Sexual orientation: Straight/Heterosexual Cognitive needs: No Hearing needs: No Vision needs: Yes Female Reproductive History Menstrual Total pregnancies: 1 Ab spontaneous: 1 Review of Systems Const Reports fatigue and Reports weakness ENT Reports neck pain Musc Reports back pain, Reports arthralgias, Reports muscle weakness and Reports neck pain Neuro Reports weakness Endo Reports fatigue Physical Exam Vital Signs: Last Vital Signs Pulse 80 06/19/24 14:57 BP 132/72 06/19/24 14:57 Pulse Ox 97 06/19/24 14:57 Oxygen Delivery Method Room Air 06/19/24 14:57 BMI result Body Mass Index 43.4 Const General: cooperative, healthy appearing and comfortable Nutritional Appearance: obese morbidly obese Orientation/consciousness: patient oriented x3 Limitations: no limitations HEENT Head: Yes normocephalic and Yes atraumatic Mouth: moist mucous membranes Resp Effort & Inspection: normal respiratory effort and able to speak in complete sentences Auscultation: clear to auscultation bilaterally Cardio Rate: regular rate Rhythm: regular rhythm Skin General skin exam: no rashes or lesions noted Neuro General: patient oriented x3 Extrem Other: Few fibromyalgia tender points No active synovitis Normal nailfold capillaroscopy Assessment & Plan Assessment & Plan (1) Fibromyalgia: Code(s): M79.7 - Fibromyalgia Category: Medical Plan: This is a 49-year-old female with fibromyalgia who presents for evaluation. Do not see any evidence of an autoimmune rheumatic disease upon my evaluation Discussed management of fibromyalgia with patient. Is a noninflammatory, non-autoimmune central afferent processing disorder leading to a diffuse pain syndrome. Patient follows up regularly with her psychologist and psychotherapist. Try to follow sleep hygiene practices. Patient states that her cat wakes her up multiple times at night and it interferes with her sleep. Advised patient that having a good night's sleep should help her symptoms. She had a sleep study about 10 years ago and she was told that she has mild sleep apnea. I think a repeat sleep study can be considered. Discussed with PCP. Patient would benefit from increased physical activity, either through formal physical therapy or by joining a gym. Advised patient that she should start activity slowly and increase as tolerated. Consider low-impact exercises such as walking, swimming, aqua therapy stretching, yoga. Patient was on gabapentin in the past and it was helpful. Patient can request gabapentin option from PCP No need for follow-up with Rheumatology at this time Plan I spent 30 minutes reviewing patient's chart, evaluating patient, counseling patient and documenting in the chart Coding Level of Care Code New Pt Level 3 (98932) Diagnoses Fibromyalgia M79.7
== END 2024-06-19 15:25 | disposition home or self-care (01) ==
PROVIDERS: PCP Internal Medicine; Visit Provider Student in an Organized Health Care Education/Training Program
DX: M79.7 Fibromyalgia (principal)
CPT/HCPCS: 99203

== ENCOUNTER → 2024-06-19 14:55 | Outpatient (BNVA) | payer OTHER, SELFPAY | PROVIDERS: PCP Internal Medicine; Visit Provider Student in an Organized Health Care Education/Training Program | DX: M79.7 Fibromyalgia (principal) | CPT/HCPCS: 99202 ==

== ENCOUNTER 2024-07-05 12:56 | Outpatient (REF) | payer OTHER, SELFPAY ==
--- NOTE | ~2024-07-05 | MM_ITS ---
EXAMINATION: MM SCREENING DIGITAL BREAST TOMOSYNTHESIS, BILATERAL CLINICAL INFORMATION: Screening. Asymptomatic. COMPARISON: Mammography: Comparison is made with available priors TECHNIQUE: Digital breast mammography with tomosynthesis is performed in both the craniocaudal and mediolateral oblique views along with computer-aided detection (CAD). FINDINGS: The breasts are heterogeneously dense, which may obscure small masses (ACR BI-RADS breast composition Category c). There are no significant masses, abnormal calcifications, or other abnormalities. MM/MM tomosynthesis screening BI IMPRESSION: No mammographic evidence of malignancy. ASSESSMENT: BI-RADS BI-RADS 1 - Negative RECOMMENDATION: Routine annual mammography screening. 1 year F/U This examination should not preclude the clinical evaluation of a suspicious palpable abnormality. This patient's information was entered into a reminder system with a target due date for their next mammogram. Electronically signed by: Geetha Flowers DO 07/27/2024 10:37 PM EDT
== END 2024-07-05 12:57 | disposition home or self-care (01) ==
LOC: HO.MAMMO 12:56
PROVIDERS: PCP Internal Medicine; Visit Provider Internal Medicine
DX: Z12.31 Encounter for screening mammogram for malignant neoplasm of breast (principal)
CPT/HCPCS: 77063; 77067

== ENCOUNTER → 2024-07-05 13:15 | Outpatient (BNV) | payer OTHER, SELFPAY | PROVIDERS: PCP Internal Medicine; Visit Provider Internal Medicine | DX: Z12.31 Encounter for screening mammogram for malignant neoplasm of breast (principal) | CPT/HCPCS: 77063; 77067 ==

== ENCOUNTER 2025-02-19 15:21 | Outpatient (AMB) | payer OTHER, SELFPAY ==
--- NOTE | 2025-02-19 15:24 | MHC.OFFVIS ---
Vital Signs 02/19/25 15:25 Height 5 ft Weight 231 lb BMI 45.1 BP 104/55 L Blood Pressure Location Rt brachial Position Sitting Pulse 81 Intake Visit Reasons: Colonoscopy Screening Intake Note: Patient in office today for colonoscopy screening. CC: Patient reports a lot of loose stools and heartburn. She takes Prilosec for hearburn. Roll Shop Supervisor Required: No Accompanied by: Self / Same As Patient Allergies cephalexin [CEPHALEXIN] Allergy (Unknown, Verified 02/19/25 15:38) Anaphylaxis ciprofloxacin [CIPROFLOXACIN] Allergy (Unknown, Verified 02/19/25 15:38) R side of body numbness clindamycin [CLINDAMYCIN] Allergy (Unknown, Verified 02/19/25 15:38) UNKNOWN Opioids - Morphine Analogues [OPIOIDS - MORPHINE ANALOGUES] Allergy (Unknown, Verified 02/19/25 15:38) UNKNOWN All Opiates Allergy (Unknown, Uncoded 06/19/24 15:05) Full body hives, hallucinations HPI HPI Colonoscopy Screening: Details: 49-year-old female here for preprocedural meeting to discuss a screening colonoscopy. She is referred by Anika Mcgee PMX Fibromyalgia syndrome Low back pain Bipolar disorder 1/PTSD Hx of uterine cancer panic disorder Cannabis use disorder Asthma * SURGICAL HISTORY Cholecystectomy Hysterectomy Dental surgeries * ALLERGIES Cephalexin - anaphylaxis Cipro - stroke like sx Clindamycin - hypotension Opioids - hives and itching * [place] LABS: None since 05/2024 TODAY'S VISIT This is her first colonoscopy, but she immediately says I need the pills because I can't drink the drink or I will vomit. She says she needs greater than average amounts of anesthesia in the past to obtain appropriate sedation - she thinks it is because she uses a great deal of marijuana. Her psych providers are trying to wean her off of it. Her asthma is exercise induced and well controlled and she denies any cardiac problems. No ID problems. Her mother and maternal grandmother had polyps removed. [facility] Medical History Elevated blood pressure reading without diagnosis of hypertension Mid-back pain, acute Chest pain PTSD (post-traumatic stress disorder) Bipolar 1 disorder Annual physical exam Surgical History Hx of cholecystectomy History of hysterectomy Family History Father HTN (hypertension) Mother No problems noted. Maternal Uncle Diabetes mellitus Sister No problems noted. Social History Household Members: Spouse and Family Household Members Other:: Mom and Housing: House Do you presently have visiting nurse or other home services: No Patient Tobacco Use Status: Former Tobacco user Tobacco use type: Cigarette Cigarette Packs Per Day: 2 Cigarettes Per Day: 40.0 Years Smoked: 26 e-Cigarette/Vaping Use: Never Used Second Hand Smoke Exposure: No Substance Use Type: Marijuana service: No Current occupational status: unemployed Sexual orientation: Straight/Heterosexual Cognitive needs: No Hearing needs: No Vision needs: Yes Review of Systems Const Denies fatigue, Denies fever(s), Denies night sweats, Denies poor appetite and Denies weight loss Eyes Details: Glasses Reports requires corrective lenses ENT Reports Normal hearing present, Denies dental pain, Denies dysphagia, Denies hearing loss, Denies mouth pain, Denies odynophagia, Denies throat swelling, Denies tongue swelling and Reports other (Dentition adequate) Card Reports no additional complaints Resp Reports no additional complaints GI Details: Denies abdominal pain, Denies melena, Denies bloating, Denies hematochezia, Denies constipation, Denies GI cramping, Denies dysphagia, Denies excessive flatus, Denies early satiety, Reports heartburn, Denies diarrhea, Reports loose stools, Denies nausea, Denies odynophagia, Denies vomiting and Denies hematemesis Skin/Breast Denies pruritus, Denies lesions, Denies rash and Denies jaundice Neuro Reports Normal hearing present and Denies Abnormal speech present Psych Reports anxiety and Reports panic attacks Endo Denies fatigue Aller/Immun Denies throat swelling and Denies tongue swelling Physical Exam Vital Signs: BMI result Body Mass Index 45.1 Const General: cooperative, no acute distress, well developed and well groomed Nutritional Appearance: well nourished, obese and overweight Orientation/consciousness: oriented to person, oriented to place and oriented to time Limitations: No language barrier, ambulation with cane, ambulation with walker and wheelchair HEENT Head: Yes normocephalic and Yes atraumatic Eyes General: appearance normal, both eyes and all related structures Pupils: Equal, round and reactive pupils present Neck Neck: Yes normal visual inspection and Yes no lymphadenopathy Thyroid: Thyroid normal Resp Effort & Inspection: normal respiratory effort and able to speak in complete sentences Auscultation: clear to auscultation bilaterally Cardio Rate: regular rate Rhythm: regular rhythm Heart sounds: Normal, physiologic split S2 sound present Peripheral pulses: radial pulses present and posterior tibial pulses present GI Inspection: No distended, Yes Abdominal panniculus present, Yes obesity, Yes scar and Yes striae Palpation (GI): Soft to palpation, nontender, no guarding, not rigid and No hepatosplenomegaly present Percussion: Yes normal to percussion Auscultation: normal bowel sounds Rectal Exam - Female: deferred Abdomen image: 1. surgical scar Skin General skin exam: no rashes or lesions noted, turgor normal, skin not dry, no jaundice, No spider nevi and no striae Rashes: no rashes Nails: normal Neuro General: oriented to person, oriented to place and oriented to time Cranial nerves: Yes Equal, round and reactive pupils present and Yes Normal hearing present Speech: No Abnormal speech present Extrem General: Yes normal to inspection, No clubbing, No cyanosis and No edema Psych Thought process: Normal thought process present and not confabulating Thought content: Normal thought content present Insight: Good insight present (Psych) Judgement: Good judgement present (Psych) Assessment & Plan Assessment & Plan (1) Pre-op chest exam: Code(s): Z01.811 - Encounter for preprocedural respiratory examination Category: Medical (2) Anesthesia complication: Comment: Pt says she needs very large amts of anesthesia in past Code(s): T88.59XA - Other complications of anesthesia, initial encounter Category: Medical Plan This is her first colonoscopy, but she immediately says I need the pills because I can't drink the drink or I will vomit. She says she needs greater than average amounts of anesthesia in the past to obtain appropriate sedation - she thinks it is because she uses a great deal of marijuana. Her psych providers are trying to wean her off of it. Her asthma is exercise induced and well controlled and she denies any cardiac problems. No ID problems. Her mother and maternal grandmother had polyps removed. Orders: Orders Complete Blood Count Auto Diff Today Z01.811 - Encounter for preprocedural respiratory examination Comprehensive Met. Panel Today Z01.811 - Encounter for preprocedural respiratory examination Colonoscopy - GI Use Only Today Z01.811 - Encounter for preprocedural respiratory examination Medications: New sod sulf-pot chloride-mag sulf 1.479-0.188- 0.225 gram (Sutab) PO PER PKG DIR for colonoscopy prep 24 tabs 0RF Coding Level of Care Code New Pt Level 3 (67078) Diagnoses Pre-op chest exam Z01.811 Anesthesia complication T88.59XA
[2025-02-19 15:25] VITALS: BP 104/55; PULSE 81; BMI 45.1
--- OUTSIDE RECORDS SUMMARY | 2025-02-19 17:58 | XMS_ITS | Clinical Summary ---
Author Organization [facility] Address [address] [place] [address] Care Team Providers Care Counselling Psychologist Name Role Phone YenlevyJoy Larry DO Primary Care Pro vider Surgical History Surgery Date Site/Laterality Comments WISDOM TOOTH EXTRACTION PROCEDURE: HISTORICAL WISDOM TEETH EXTRACTION OTHER SURGICAL HISTORY 12/16 PROCEDURE: RI DILATION & CURETTAGE DX&/THER NONOBSTETRIC; COMMENT: hys planned OTHER SURGICAL HISTORY 03/16/11 PROCEDURE: HISTORICAL TOTAL HYSTERECTOMY W/O BSO; COMMENT: Complex hyperplasia with atypia CHOLECYSTECTOMY PROCEDURE: HISTORICAL CHOLECYSTECTOMY Medical History Medical History Date Comments GERD (gastroesophageal reflu x disease) DX:GERD (gastroesophageal re flux disease) Migraine headache DX:Migraine he adache Asthma, exercise induced DX:Asth ma, exercise induced Congenital hip dysplasia 01/14/2011 DX:Ted enital hip dysplasia Fracture of ankle in teens DX:Fracture of ankle; COMMENT: right and left Fracture of wrist -2006, DX:Fracture of wrist; COMMENT: right, left Anxiety DX:Anxiety PTSD (post-traumatic stress disorder) DX:PTSD (post-traumatic stress disorder) Fibromyalgia DX:Fibromyalgia Hypertension DX:Hypertension Menopausal syndrome DX:Menopausa l syndrome Chronic back pain DX:Chronic adria k pain Insomnia with sleep apnea DX:Ins omnia with sleep apnea Panic attacks DX:Panic attacks History of suicide attempt DX:De story of suicide attempt; COMMENT: as teenager Medical marijuana use DX:Medical marijuana use Other specified personal his tory presenting hazards to health(V15.89) 03/2011 DX:Other specifie d personal history presenting hazards to health(V15.89); COMMENT: uterine ca Bipolar 1 disorder (CMS/HCC V24, CMS/HCC V28) DX:Bipolar 1 disorder (HCC) Suicide attempt (CMS/HCC V24 , [facility] V28) DX:Suicide attempt (HCC) Family History Medical History Relation Name Comments Breast cancer Aunt 8 maternal gre ataunts and 1 greatmaternal uncle Arthritis Father Hypertension Father dementia Breast cancer Maternal Grandmother Hypertension Mother Breast cancer Other mat 2nd cousin Arthritis Paternal Grandmother Hyperthyroidism Sister 1 Relation Name Status Comments Aunt Father Alive HTN, CAD, Migra liliya Maternal Grandmother Alive Mother Alive Uterine fibroid s, breast cysts Mother's side Breast Ca MGM and aunt Other mat 2nd cousin Alive Paternal Grandmother arthrit is very young Sister 1 Sister 2 Social History Tobacco Use Types Packs/Day Years Used Date Smoking Tobacco: Former Cigarettes Q uit: 08/06/2011 Smokeless Tobacco: Never Alcohol Use Standard Drinks/Week Comments Yes 0 (1 standard drink = 0.6 oz pur e alcohol) Comments Unknown Sex and Gender Information Value Date Recorded Sex Assigned at Not on file Legal Sex Female 6:47 PM EST Gender Identity Not on file Sexual Orientation Not on file Obstetrics History Plan of Treatment Health Maintenance Due Date Last Done Comments Breast Cancer Screening 1975 Hepatitis B Vaccines (1 of 3 - 19+ 3-dose series) 1994 Cervical Cancer Screening: P ap Smear 01/31/1996 COVID-19 Vaccine (2023-2 5 season) 2024 DTaP,Tdap,and Td Vaccines (3 - Td or Tdap) 08/21/2024 08/21/2014, 11/06/2008 Pneumococcal Vaccine: 50+ Years (1 of 1 - PCV) 2025 Zoster Vaccines (1 of 2) 2025 Influenza Vaccine (Season Ended) 2025 08/21/2014 HIB Vaccines Aged Out No longer eligi ble based on patient's age to complete this topic HPV Vaccines Aged Out No longer eligi ble based on patient's age to complete this topic Hepatitis A Vaccines Aged Out No long er eligible based on patient's age to complete this topic IPV Vaccines Aged Out No longer eligi ble based on patient's age to complete this topic MMR Vaccines Aged Out No longer eligi ble based on patient's age to complete this topic Meningococcal ACWY Vaccine Aged Out N o longer eligible based on patient's age to complete this topic Meningococcal B Vaccine Aged Out No l onger eligible based on patient's age to complete this topic Pneumococcal Vaccine: Pediatrics (0 to 5 Years) and At-Risk Patients (6 to 64 Years) Aged Out No longer eligible b ased on patient's age to complete this topic RSV Immunization Patients Under 20 months Aged Out No longer eligible b ased on patient's age to complete this topic Varicella Vaccines Aged Out No longer eligible based on patient's age to complete this topic Care Teams Counselling Psychologist Relationship Specialty Start Date End Date Joy Peralta DO PCP - General Internal Medicine 02/14/14
== END 2025-02-19 16:38 | disposition home or self-care (01) ==
LOC: HO.HGI 15:22
PROVIDERS: PCP Internal Medicine; Visit Provider Nurse Practitioner
DX: Z01.811 Encounter for preprocedural respiratory examination (principal); T88.59XA Other complications of anesthesia, initial encounter
CPT/HCPCS: 99203

== ENCOUNTER → 2025-02-19 15:21 | Outpatient (BNVA) | payer OTHER, SELFPAY | PROVIDERS: PCP Internal Medicine; Visit Provider Nurse Practitioner | DX: Z01.811 Encounter for preprocedural respiratory examination (principal); T88.59XA Other complications of anesthesia, initial encounter | CPT/HCPCS: 99202 ==

== ENCOUNTER 2025-05-28 14:06 | Outpatient (REF) | payer OTHER, SELFPAY ==
--- OUTSIDE RECORDS SUMMARY | 2025-05-28 14:50 | XMS_ITS | Clinical Summary ---
Author Organization [facility] Address [address] [place] [address] Care Team Providers Care Carry In Worker Name Role Phone YenlevyJoy Larry DO Primary Care Pro vider Surgical History Surgery Date Site/Laterality Comments WISDOM TOOTH EXTRACTION PROCEDURE: HISTORICAL WISDOM TEETH EXTRACTION OTHER SURGICAL HISTORY 12/16 PROCEDURE: [place] DILATION & CURETTAGE DX&/THER NONOBSTETRIC; COMMENT: hys [...] attacks DX:Panic attacks History of suicide attempt DX:Ks story of suicide attempt; COMMENT: as teenager Medical marijuana use DX:Medical marijuana use Other specified personal his tory presenting hazards to health(V15.89) 03/2011 DX:Other specifie d personal history presenting hazards to health(V15.89); COMMENT: uterine ca Bipolar 1 disorder (CMS/HCC V24, CMS/HCC V28) DX:Bipolar 1 disorder (HCC) Suicide attempt (CMS/HCC V24 , [facility] V28) DX:Suicide attempt (HCC) Family History Medical [...] Last Done Comments Breast Cancer Screening 1975 Cervical Cancer Screening: P ap Smear 01/31/1996 COVID-19 Vaccine ( - 2023-2 5 season) 2024 DTaP,Tdap,and Td Vaccines (3 - Td or Tdap) 08/21/2024 08/21/2014, 11/06/2008 Depression Screening 11/06/2024 Pneumococcal Vaccine: 50+ Years (1 of 1 - PCV) 2025 Zoster Vaccines (1 of 2) 2025 Influenza Vaccine (#1) 2025 , 08/21/2014 Hepatitis B Vaccines Completed 07/12/2024, 06/11/2024 HIB Vaccines Aged Out No longer eligi [...] age to complete this topic Care Teams Carry In Worker Relationship Specialty Start Date End Date Joy Peralta DO PCP - General Internal Medicine 02/14/14
[2025-05-28 16:34] LABS: MANUAL DIFF FLAG NO
[2025-05-28 16:39] LABS: Hematocrit 40.1 % (37.0-47.0); Hemoglobin 13.1 g/dl (12.0-16.0); Imm Gran Abs Auto 0.03 X10*3/uL (0.00-0.03); Imm Gran Pct Auto 0.4 % (0.0-0.4); Lymphocytes Absolute Auto 2.2 X10*3/uL (1.2-4.9); Mean Corpuscular HGB Conc 32.7 g/dl (31.0-35.0); Mean Corpuscular Hemoglobin 27.9 pg (27.0-33.0); Mean Corpuscular Volume 85.3 fL (80.0-98.0); NRBC Abs Auto 0.000 X10*3/uL (0.0-0.012); NRBC Pct Auto 0.0 /100WBC (0.0-0.2); Platelet Count 305 X10*3/uL (160-400); Red Blood Count 4.70 X10*6/uL (4.20-5.50); White Blood Count 8.1 X10*3/uL (4.8-10.8)
[2025-05-28 16:53] LABS: Hemoglobin A1C 114.7933 umol/L; Total Hemoglobin (HGBA1C) 3432.1930 umol/L
[2025-05-28 17:01] LABS: Alanine Aminotransferase 23 U/L (0-31); Albumin Level 4.0 g/dL (3.5-5.0); Alkaline Phosphatase 64 U/L (39-117); Anion Gap 10 (12-20); Aspartate Amino Transferase 20 U/L (5-31); Blood Urea Nitrogen 12 mg/dL (9-16); Calcium 9.0 mg/dL (8.4-10.2); Carbon Dioxide 30 mmol/L (22-29); Chloride 103 mmol/L (96-108); Cholesterol 187 mg/dL (<200); Estimated Glomerular Filt Rate > 60; HDL Cholesterol 37 mg/dL (>40); Potassium 4.2 mmol/L (3.3-5.1); Sodium 139 mmol/L (135-145); Total Protein 7.2 g/dL (6.5-8.0); Triglycerides 162 mg/dL (<150)
== END 2025-05-28 14:07 | disposition home or self-care (01) ==
LOC: HO.HMGCLDS 14:06
PROVIDERS: PCP Internal Medicine; Visit Provider Internal Medicine
DX: Z00.00 Encounter for general adult medical examination without abnormal findings (principal); F31.9 Bipolar disorder, unspecified
CPT/HCPCS: 36415; 80053; 80061; 82306; 83036; 84443; 85025

== ENCOUNTER 2025-07-17 12:50 | Outpatient (REF) | payer OTHER, SELFPAY ==
--- OUTSIDE RECORDS SUMMARY | 2025-07-17 16:59 | XMS_ITS | Clinical Summary ---
Author Organization [facility] Address [address] [place] [address] Care Team Providers Care Security Researcher Name Role Phone BettykaylaJoy Larry DO Primary Care Pro vider Surgical History Surgery Date Site/Laterality Comments WISDOM TOOTH EXTRACTION PROCEDURE: HISTORICAL WISDOM TEETH EXTRACTION OTHER SURGICAL HISTORY 12/16 PROCEDURE: [place] DILATION & CURETTAGE DX&/THER NONOBSTETRIC; COMMENT: hys [...] attacks DX:Panic attacks History of suicide attempt DX:Co story of suicide attempt; COMMENT: as teenager Medical marijuana use DX:Medical marijuana use Other specified personal his tory presenting hazards to health(V15.89) 03/2011 DX:Other specifie d personal history presenting hazards to health(V15.89); COMMENT: uterine ca Bipolar 1 disorder (CMS/HCC V24, CMS/HCC V28) DX:Bipolar 1 disorder (HCC) Suicide attempt (CMS/HCC V24 , [facility] V28) DX:Suicide attempt (HCC) Family History Medical [...] Cervical Cancer Screening: P ap Smear 01/31/1996 DTaP,Tdap,and Td Vaccines (3 - Td or Tdap) 08/21/2024 08/21/2014, 11/06/2008 Depression Screening 11/06/2024 Pneumococcal Vaccine: 50+ Years (1 of 1 - PCV) 2025 Zoster Vaccines (1 of 2) 2025 COVID-19 Vaccine (1 - 2023-2 5 season) 2025 Influenza Vaccine (#1) 2025 , 08/21/2014 [...] age to complete this topic Care Teams Security Researcher Relationship Specialty Start Date End Date Joy Peralta DO PCP - General Internal Medicine 02/14/14
== END 2025-07-17 12:51 | disposition home or self-care (01) ==
LOC: HO.MAMMO 12:50
PROVIDERS: PCP Internal Medicine; Visit Provider Internal Medicine
DX: Z12.31 Encounter for screening mammogram for malignant neoplasm of breast (principal)
CPT/HCPCS: 77063; 77067

== ENCOUNTER → 2025-07-17 13:04 | Outpatient (BNV) | payer OTHER, SELFPAY | PROVIDERS: PCP Internal Medicine; Visit Provider Internal Medicine | DX: Z12.31 Encounter for screening mammogram for malignant neoplasm of breast (principal) | CPT/HCPCS: 77063; 77067 ==

== ENCOUNTER 2025-07-21 14:13 | Outpatient (AMB) | payer OTHER, SELFPAY ==
--- NOTE | 2025-07-21 14:25 | MHC.PC.OV ---
Vital Signs 07/21/25 14:26 Height 5 ft Weight 221 lb BMI 43.2 BP 108/78 Blood Pressure Location Lt brachial Position Sitting Respiration 19 Pulse 78 Pulse Source Pulse Oximeter Temp 98.7 F Temp Source Oral Pulse Oximetry (%) 95 Oxygen Delivery Method Room Air Intake Visit Reasons: PE Intake Note: Pt is here today for PE. Allergies cephalexin (CEPHALEXIN) Allergy (Unknown, Verified 07/21/25 14:27) Anaphylaxis ciprofloxacin (CIPROFLOXACIN) Allergy (Unknown, Verified 07/21/25 14:27) R side of body numbness clindamycin (CLINDAMYCIN) Allergy (Unknown, Verified 07/21/25 14:27) UNKNOWN Opioids - Morphine Analogues (OPIOIDS - MORPHINE ANALOGUES) Allergy (Unknown, Verified 07/21/25 14:27) UNKNOWN All Opiates Allergy (Unknown, Uncoded 07/21/25 14:27) Full body hives, hallucinations Medication List - Last Reconciled 07/21/25 by Anika Mcgee MD albuterol sulfate 90 mcg/actuation 2 puffs inhalation Q6H PRN bupropion HCl XL (Wellbutrin XL) 300 mg PO QAM buspirone 30 mg PO BID cholecalciferol (vitamin D3) 25 mcg PO DAILY fexofenadine 30 mg PO DAILY lorazepam (Ativan) 2 mg PO DAILY PRN lurasidone (Latuda) 60 mg PO DAILY omeprazole magnesium (Prilosec OTC) 20 mg PO DAILY [One A Day Vitamin PO DAILY] sod sulf-pot chloride-mag sulf 1.479-0.188- 0.225 gram (Sutab) PO PER PKG DIR for colonoscopy prep trazodone 200 mg PO BEDTIME Tobacco use date assessed: 07/21/25 Dental Screening Dental Screen Date: 07/21/25 Did you have a dental visit in the last 12 months?: Yes Did you have a dental problem in the last 6 months where you did not have access to dental care?: No Was dental information given to patient?: Patient has dentist HPI PE HPI Details Pt presents for PE. [facility] Medical History (Updated 07/21/25 @ 14:49 by Anika Mcgee MD) Annual physical exam Asthma Mid-back pain, acute Chest pain PTSD (post-traumatic stress disorder) Bipolar 1 disorder Surgical History Hx of cholecystectomy History of hysterectomy Family History Father HTN (hypertension) Mother No problems noted. Maternal Uncle Diabetes mellitus Sister No problems noted. Maternal Grandmother Breast cancer Social History Household Members: Spouse and Family Household Members Other:: Mom and Housing: House Do you presently have visiting nurse or other home services: No Patient Tobacco Use Status: Former Tobacco user Tobacco use type: Cigarette Cigarette Packs Per Day: 2 Cigarettes Per Day: 40.0 Years Smoked: 26 e-Cigarette/Vaping Use: Never Used Second Hand Smoke Exposure: No Substance Use Type: Marijuana service: No Current occupational status: unemployed Sexual orientation: Straight/Heterosexual Cognitive needs: No Hearing needs: No Vision needs: Yes Questionnaire PHQ-9 Over the last 2 weeks, how often have you been bothered by any of the following problems? 1. Little interest or pleasure in doing things: several days 2. Feeling down, depressed, or hopeless: several days 3. Trouble falling or staying asleep, or sleeping too much: nearly every day 4. Feeling tired or having little energy: nearly every day 5. Poor appetite or overeating: not at all 6. Feeling bad about yourself - or that you are a failure or have let yourself or your family down: nearly every day 7. Trouble concentrating on things, such as reading the newspaper or watching television: not at all 8. Moving or speaking so slowly that other people could have noticed. Or the opposite - being so fidgety or restless that you have been moving around a lot more than usual: not at all 9. Thoughts that you would be better off or of hurting yourself in some way: not at all Total score: 11 Depression Screening Interpretation: Positive Depression Screening Follow-up: Existing condition and In treatment Depression Screening Done: Yes 98341 - PHQ-9 Billing: Yes Source: Developed by Drs. Pal Virgen, Rasheeda Green, Shaheen Harrington and colleagues, with an educational mehdi from [employer]. Thrive Questionnaire Date Thrive assessed: 07/21/25 I am a: Patient What is your living situation today?: I have a steady place to live Within the past 12 months, did the food you bought not last and you didn't have the money to get more?: Sometimes True Within the past 12 months, did you worry whether your food would run out before you got money to buy more?: Sometimes True Do you have trouble paying for medicines?: No Do you have trouble getting transportation to medical appointments?: No Do you have trouble paying your heating and electricity bill?: No Do you have trouble taking care of your child, family member or friend?: No Do you have trouble with day-to-day activities such as bathing, preparing meals, shopping, managing finances, etc.?: No Are you currently unemployed and looking for a job?: I choose not to answer this question Are you interested in more education?: Yes Please select the resources that you would like help with: None Currently or been in a relationship where the following occur: No concerns reported THRIVE Score: 2 AUDIT C Alcohol Use Questionnaire (AUDIT-C) 1. How often do you have a drink containing alcohol?: Never 3. How often do you have six or more drinks on one occasion?: Never Total Score: 0 MARIO-7 AMB Questionnaire MARIO-7 Date MARIO - 7 assessed: 07/21/25 Feeling nervous, anxious, or on edge: 1 = Several days Not being able to stop or control worryin = Several days Worrying too much about different things: 1 = Several days Trouble relaxin = Several days Being so restless that it is hard to sit still: 1 = Several days Becoming easily annoyed or irritable: 1 = Several days Feeling afraid as if something awful might happen: 1 = Several days Total MARIO-7 score (0-4 normal; 5-9 mild; 10-14 moderate; 15-21 severe): 7 Source: Developed by Drs. Pal Virgen, Rasheeda Green, Shaheen Harrington and colleagues, with an educational mehdi from [employer]. MARIO-7 Assessment Billing MARIO-7 Assessment Tool: MARIO-7 Assessment 71577 Review of Systems Const All systems reviewed & are unremarkable except as noted in HPI and below Eyes Reports no additional complaints ENT Reports no additional complaints Card Reports no additional complaints Resp Reports no additional complaints GI Reports no additional complaints Reports no additional complaints Physical exam (Primary Care) Vital Signs: Last Vital Signs Temp 98.7 F 07/21/25 14:26 Pulse 78 07/21/25 14:26 Resp 19 07/21/25 14:26 BP 108/78 07/21/25 14:26 Pulse Ox 95 07/21/25 14:26 Oxygen Delivery Method Room Air 07/21/25 14:26 BMI result Body Mass Index 43.2 Tobacco/Smoking Status: Tobacco use Status Tobacco use date assessed 07/21/25 07/21/25 14:33 Patient Tobacco Use Status Former Tobacco user 07/21/25 14:33 Tobacco use type Cigarette 07/21/25 14:33 e-Cigarette/Vaping Use Never Used 07/21/25 14:33 PHQ-9: PHQ-9 Score PHQ-9: Total score 11 07/21/25 14:33 Depression Screening Interpretation: Positive Depression Screening Follow-up: Existing condition and In treatment Thrive Assessment: Date of Thrive Assessment Date Thrive assessed 07/21/25 07/21/25 14:33 Currently or been in a relationship where the following occur: No concerns reported Const General: no acute distress HENMT Head: Yes normal to inspection Ears: hearing grossly normal bilaterally Mouth: Normal oral and palatal mucosa present Throat: Yes posterior oropharynx normal Eyes General: appearance normal, both eyes and all related structures Neck Neck: Yes no lymphadenopathy and Yes supple Resp Effort & Inspection: normal respiratory effort Auscultation: clear to auscultation bilaterally Cardio Rhythm: regular rhythm Heart sounds: S1 normal heart sound present and S2 normal heart sound present GI Inspection: Yes normal to inspection Palpation (GI): Soft to palpation Percussion: Yes normal to percussion Auscultation: normal bowel sounds Coding Level of Care Code Est Pt Prev Care 40-64y(03597) Diagnoses Bipolar 1 disorder F31.9 Overweight E66.3 Annual physical exam Z00.00 Additional Codes MARIO-7 Assessment Billing - MARIO-7 Assessment Tool: MARIO-7 Assessment 67349 ([id number]) PHQ-9 - 17084 - PHQ-9 Billing: Yes ([id number]) Assessment & Plan Assessment & Plan (1) Bipolar 1 disorder: Comment: f/u psychiatrist Code(s): F31.9 - Bipolar disorder, unspecified Category: Medical Plan: Continue current medications follow-up with psychiatry (2) Overweight: Code(s): E66.3 - Overweight Category: Medical Plan: Decreasing caloric intake increasing physical activity discussed with the patient (3) Annual physical exam: Comment: No Pap smear pelvic exam s/p hysterectomy Code(s): Z00.00 - Encounter for general adult medical examination without abnormal findings Category: Medical Plan: Well-balanced diet regular exercise discussed with the patient she is up-to-date with the mammogram and will have a colonoscopy. Orders: Orders Comprehensive [place]. Panel Fast 1 Year E55.9 - Vitamin D deficiency, unspecified, E66.3 - Overweight, R73.9 - Hyperglycemia, unspecified, Z00.00 - Encounter for general adult medical examination without abnormal findings Complete Blood Count Auto Diff 1 Year E55.9 - Vitamin D deficiency, unspecified, E66.3 - Overweight, R73.9 - Hyperglycemia, unspecified, Z00.00 - Encounter for general adult medical examination without abnormal findings Lipid Panel 1 Year E55.9 - Vitamin D deficiency, unspecified, E66.3 - Overweight, R73.9 - Hyperglycemia, unspecified, Z00.00 - Encounter for general adult medical examination without abnormal findings UA w Microscopic 1 Year E55.9 - Vitamin D deficiency, unspecified, E66.3 - Overweight, R73.9 - Hyperglycemia, unspecified, Z00.00 - Encounter for general adult medical examination without abnormal findings Vitamin D 25-OH Total 1 Year E55.9 - Vitamin D deficiency, unspecified, E66.3 - Overweight, R73.9 - Hyperglycemia, unspecified, Z00.00 - Encounter for general adult medical examination without abnormal findings TSH reflex Free T4 1 Year E55.9 - Vitamin D deficiency, unspecified, E66.3 - Overweight, R73.9 - Hyperglycemia, unspecified, Z00.00 - Encounter for general adult medical examination without abnormal findings Hemoglobin A1c 1 Year E55.9 - Vitamin D deficiency, unspecified, E66.3 - Overweight, R73.9 - Hyperglycemia, unspecified, Z00.00 - Encounter for general adult medical examination without abnormal findings
[2025-07-21 14:26] VITALS: BP 108/78; PULSE 78; RESP 19; TEMP 37.1; O2SAT 95; BMI 43.2
--- OUTSIDE RECORDS SUMMARY | 2025-07-21 19:33 | XMS_ITS | Clinical Summary ---
Author Organization [facility] Address [address] [place] [address] Care Team Providers Care Head Of English Name Role Phone BettykaylaJoy Larry DO Primary Care Pro vider Surgical History Surgery Date Site/Laterality Comments WISDOM TOOTH EXTRACTION PROCEDURE: HISTORICAL WISDOM TEETH EXTRACTION OTHER SURGICAL HISTORY 12/16 PROCEDURE: [place] DILATION & CURETTAGE DX&/THER NONOBSTETRIC; COMMENT: hys [...] attacks DX:Panic attacks History of suicide attempt DX:Al story of suicide attempt; COMMENT: as teenager Medical marijuana use DX:Medical marijuana use Other specified personal his tory presenting hazards to health(V15.89) 03/2011 DX:Other specifie d personal history presenting hazards to health(V15.89); COMMENT: uterine ca Bipolar 1 disorder (CMS/HCC V24, CMS/HCC V28) DX:Bipolar 1 disorder (HCC) Suicide attempt (CMS/HCC V24 , [facility] V28) DX:Suicide attempt (HCC) Family History [...] age to complete this topic Care Teams Head Of English Relationship Specialty Start Date End Date Joy Peralta DO PCP - General Internal Medicine 02/14/14
== END 2025-07-21 14:47 | disposition home or self-care (01) ==
LOC: HO.HMCC 14:14
PROVIDERS: PCP Internal Medicine; Visit Provider Internal Medicine
DX: F31.9 Bipolar disorder, unspecified (principal); E66.3 Overweight; Z00.00 Encounter for general adult medical examination without abnormal findings

== ENCOUNTER → 2025-07-21 14:13 | Outpatient (BNVA) | payer OTHER, SELFPAY | PROVIDERS: PCP Internal Medicine; Visit Provider Internal Medicine | DX: Z00.00 Encounter for general adult medical examination without abnormal findings (principal); F31.9 Bipolar disorder, unspecified; E66.3 Overweight; Z68.41 Body mass index [BMI] 40.0-44.9, adult | CPT/HCPCS: 96127; 99396 ==

== ENCOUNTER 2025-08-20 13:57 | Outpatient (REF) | payer OTHER, SELFPAY ==
--- NOTE | ~2025-08-20 | US_ITS ---
EXAMINATION: MM DIAGNOSTIC DIGITAL BREAST TOMOSYNTHESIS, LEFT Limited left breast ultrasound. CLINICAL INFORMATION: Call back from screening for focal asymmetry in the upper outer left breast posterior depth. COMPARISON: Mammography: Priors on PACS. TECHNIQUE: Digital breast tomosynthesis is performed in both the craniocaudal and mediolateral oblique views along with computer-aided detection (CAD). Synthesized 2D images are generated from the tomosynthesis. FINDINGS: The breasts are heterogeneously dense, which may obscure small masses. Focal asymmetry in the upper outer breast persists on MLO spot compression views and is less conspicuous on cc spot elaina synthesis views. No suspicious calcifications or other abnormal findings. Targeted color Doppler ultrasound scanning in the left upper outer quadrant demonstrates normal follicular breast tissue. There is no sonographic abnormal finding. US/US Breast LT Limited Mamm Only IMPRESSION: Focal asymmetry in the upper outer breast posterior depth which partially effaces and without sonographic correlate. Stereotactic core needle biopsy was offered to the patient however patient prefers six-month follow-up at this time for further evaluation. ASSESSMENT: BI-RADS Category 3: Probably benign RECOMMENDATION: 6 Month F/U Results were discussed with the patient at time of visit. Electronically signed by: Geetha Flowers DO 08/20/2025 03:09 PM EDT RP
--- OUTSIDE RECORDS SUMMARY | 2025-08-20 17:43 | XMS_ITS | Clinical Summary ---
Author Organization [facility] Address [address] [place] [address] Care Team Providers Care Energy Risk Management Analyst Name Role Phone BettykaylaJoy Larry DO Primary Care Pro vider Surgical History Surgery Date Site/Laterality Comments WISDOM TOOTH EXTRACTION PROCEDURE: HISTORICAL WISDOM TEETH EXTRACTION OTHER SURGICAL HISTORY 12/16 PROCEDURE: [place] DILATION & CURETTAGE DX&/THER NONOBSTETRIC; COMMENT: hys [...] attacks DX:Panic attacks History of suicide attempt DX:Ny story of suicide attempt; COMMENT: as teenager Medical marijuana use DX:Medical marijuana use Other specified personal his tory presenting hazards to health(V15.89) 03/2011 DX:Other specifie d personal history presenting hazards to health(V15.89); COMMENT: uterine ca Bipolar 1 disorder (CMS/HCC V24, CMS/HCC V28) DX:Bipolar 1 disorder (HCC) Suicide attempt (CMS/HCC V24 , [facility] V28) DX:Suicide attempt (HCC) Family History Medical [...] 2025 Influenza Vaccine (#1) 2025 , 08/21/2014 RSV Immunization Adult Patients (1 - 1-dose 75+ series) 2050 Hepatitis B Vaccines Completed 07/12/2024, 06/11/2024 HIB [...] age to complete this topic Care Teams Energy Risk Management Analyst Relationship Specialty Start Date End Date Joy Peralta DO PCP - General Internal Medicine 02/14/14
== END 2025-08-20 13:58 | disposition home or self-care (01) ==
LOC: HO.MAMMO 13:57
PROVIDERS: PCP Internal Medicine; Visit Provider Internal Medicine
DX: N64.89 Other specified disorders of breast (principal)
CPT/HCPCS: 76642; 77061; 77065

== ENCOUNTER → 2025-08-20 14:00 | Outpatient (BNV) | payer OTHER, SELFPAY | PROVIDERS: PCP Internal Medicine; Visit Provider Internal Medicine | DX: R92.8 Other abnormal and inconclusive findings on diagnostic imaging of breast (principal) | CPT/HCPCS: 76642; 77061; 77065 ==

== ENCOUNTER 2025-09-24 09:18 | Day surgery (SDC) | payer OTHER, SELFPAY ==
--- OUTSIDE RECORDS SUMMARY | 2025-08-26 17:50 | XMS_ITS | Clinical Summary ---
Author Organization [facility] Address [address] [place] [address] Care Team Providers Care [employer] Name Role Phone BettykaylaJoy Larry DO Primary Care Pro vider Surgical History Surgery Date Site/Laterality Comments WISDOM TOOTH EXTRACTION PROCEDURE: HISTORICAL WISDOM TEETH EXTRACTION OTHER SURGICAL HISTORY 12/16 PROCEDURE: IN DILATION & CURETTAGE DX&/THER NONOBSTETRIC; COMMENT: hys [...] attacks DX:Panic attacks History of suicide attempt DX:Vt story of suicide attempt; COMMENT: as teenager Medical marijuana use DX:Medical marijuana use Other specified personal his tory presenting hazards to health(V15.89) 03/2011 DX:Other specifie d personal history presenting hazards to health(V15.89); COMMENT: uterine ca Bipolar 1 disorder (CMS/HCC V24, CMS/HCC V28) DX:Bipolar 1 disorder (HCC) Suicide attempt (CMS/HCC V24 , [facility] V28) DX:Suicide attempt (HCC) Family [...] age to complete this topic Care Teams [employer] Relationship Specialty Start Date End Date Joy Peralta DO PCP - General Internal Medicine 02/14/14
[2025-09-24 09:34] VITALS: BMI 43.7
[2025-09-24 09:54] VITALS: BP 131/93; PULSE 86; RESP 18; TEMP 37; O2SAT 96
[2025-09-24] MEDS: Lactated Ringers 1,000 ML 100 ML IVCONT (10:02)
--- NOTE | 2025-09-24 10:09 | HO.ANESPROP2 ---
Documented by User: Joanna Haas NP 09/23/25 12:52 HPI - Anesthesia Eval Consult details Narrative: 50yo F for Colonoscopy Heavy marijuana use Has had increased requirements of anesthesia in the past PMFSH Active Problems Active Problems: All Active Problems Overweight (Acute) Annual physical exam (Acute) Anesthesia complication (Acute) Panic disorder (Acute) Asthma (Acute) Pre-op chest exam (Acute) Fibromyalgia (Acute) Lower back pain (Acute) Hyperglycemia (Acute) Vitamin D deficiency (Acute) Right wrist pain (Acute) Mid-back pain, acute (Acute) Chest pain (Acute) PTSD (post-traumatic stress disorder) (Acute) Bipolar 1 disorder (Acute) Past Medical History Medical History (Updated 07/21/25 @ 14:49 by Anika Mcgee MD) Annual physical exam Asthma Mid-back pain, acute Chest pain PTSD (post-traumatic stress disorder) Bipolar 1 disorder Family History Family History Father HTN (hypertension) Mother No problems noted. Maternal Uncle Diabetes mellitus Sister No problems noted. Maternal Grandmother Breast cancer Surgical History Surgical History Hx of cholecystectomy History of hysterectomy Social History Social History Household Members: Spouse and Family Household Members Other:: Mom and Housing: House Are you a primary daytime caregiver to a significant other at home: No Do you presently have visiting nurse or other home services: No Patient Tobacco Use Status: Former Tobacco user Tobacco use type: Cigarette Cigarette Packs Per Day: 2 Cigarettes Per Day: 40.0 Years Smoked: 26 e-Cigarette/Vaping Use: Never Used Second Hand Smoke Exposure: No Use of substances other than those prescribed or required for medical reasons: Yes Substance Use Type: Marijuana Substance Use Frequency: Daily Have you been hit, kicked, punched, or otherwise hurt by someone within the past year? If so, by whom?: No Are you DNR?: No Advance Directives: No Advance Directives Information Provided: Yes Advance Directives on File: No Patient : No : No service: No Current occupational status: unemployed Sexual orientation: Straight/Heterosexual Cognitive needs: No Hearing needs: No Vision needs: Yes Meds Allergies Allergy/AdvReac Type Severity Reaction Status Date / Time cephalexin (CEPHALEXIN) Allergy Unknown Anaphylaxis Verified 07/21/25 14:27 ciprofloxacin (CIPROFLOXACIN) Allergy Unknown R side of Verified 07/21/25 14:27 body numbness clindamycin (CLINDAMYCIN) Allergy Unknown UNKNOWN Verified 07/21/25 14:27 Opioids - Morphine Analogues Allergy Unknown UNKNOWN Verified 07/21/25 14:27 (OPIOIDS - MORPHINE ANALOGUES) All Opiates Allergy Unknown Full body Uncoded 07/21/25 14:27 hives, hallucinations Home Medications ?Medication ?Instructions ?Recorded ?Confirmed ?Last Taken ?Type buspirone 30 mg tablet 30 mg PO BID 09/08/20 07/21/25 Unknown History bupropion HCl 300 mg 24 hr tablet, 300 mg PO QAM 01/12/23 07/21/25 Unknown History extended release (Wellbutrin XL) One A Day Vitamin PO DAILY 02/14/24 07/21/25 Unknown History lorazepam 2 mg tablet (Ativan) 2 mg PO DAILY PRN anxiety 03/27/24 07/21/25 Unknown History fexofenadine 30 mg tablet 30 mg PO DAILY 05/23/24 07/21/25 Unknown History trazodone 100 mg tablet 200 mg PO BEDTIME Insomnia 05/23/24 07/21/25 Unknown History cholecalciferol (vitamin D3) 25 25 mcg PO DAILY 02/19/25 07/21/25 Unknown History mcg (1,000 unit) capsule omeprazole magnesium 20 mg 20 mg PO DAILY 02/19/25 07/21/25 Unknown History tablet,delayed release (Prilosec OTC) lurasidone 20 mg tablet (Latuda) 60 mg PO DAILY 07/21/25 07/21/25 Unknown History Exam Pertinent Lab Results Pertinent Lab Results: Laboratory Tests 05/28/25 14:09 WBC 8.1 Hgb 13.1 Hct 40.1 Plt Count 305 Sodium 139 Potassium 4.2 Chloride 103 Carbon Dioxide 30 H BUN 12 Creatinine 0.96 Assessment and Plan Assessment Anesthesia Assessment: Chart Reviewed Documented by User: Madai Lord DO 09/24/25 10:10 PMFSH Past Medical History Medical History (Updated 07/21/25 @ 14:49 by Anika Mcgee MD) Annual physical exam Asthma Mid-back pain, acute Chest pain PTSD (post-traumatic stress disorder) Bipolar 1 disorder Family History Family History Father HTN (hypertension) Mother No problems noted. Maternal Uncle Diabetes mellitus Sister No problems noted. Maternal Grandmother Breast cancer Family history of problems with anesthesia: No Surgical History Surgical History Hx of cholecystectomy History of hysterectomy History of Problems with Anesthesia: No Social History Social History Household Members: Spouse and Family Household Members Other:: Mom and Housing: House Are you a primary daytime caregiver to a significant other at home: No Do you presently have visiting nurse or other home services: No Patient Tobacco Use Status: Former Tobacco user Tobacco use type: Cigarette Cigarette Packs Per Day: 2 Cigarettes Per Day: 40.0 Years Smoked: 26 e-Cigarette/Vaping Use: Never Used Second Hand Smoke Exposure: No Use of substances other than those prescribed or required for medical reasons: Yes Substance Use Type: Marijuana Substance Use Frequency: Daily Have you been hit, kicked, punched, or otherwise hurt by someone within the past year? If so, by whom?: No Are you DNR?: No Advance Directives: No Advance Directives Information Provided: Yes Advance Directives on File: No Patient : No : No service: No Current occupational status: unemployed Sexual orientation: Straight/Heterosexual Cognitive needs: No Hearing needs: No Vision needs: Yes Meds Allergies Allergy/AdvReac Type Severity Reaction Status Date / Time cephalexin (CEPHALEXIN) Allergy Unknown Anaphylaxis Verified 07/21/25 14:27 ciprofloxacin (CIPROFLOXACIN) Allergy Unknown R side of Verified 07/21/25 14:27 body numbness clindamycin (CLINDAMYCIN) Allergy Unknown UNKNOWN Verified 07/21/25 14:27 Opioids - Morphine Analogues Allergy Unknown UNKNOWN Verified 07/21/25 14:27 (OPIOIDS - MORPHINE ANALOGUES) All Opiates Allergy Unknown Full body Uncoded 07/21/25 14:27 hives, hallucinations Home Medications ?Medication ?Instructions ?Recorded ?Confirmed ?Last Taken ?Type buspirone 30 mg tablet 30 mg PO BID 09/08/20 07/21/25 Unknown History bupropion HCl 300 mg 24 hr tablet, 300 mg PO QAM 01/12/23 07/21/25 Unknown History extended release (Wellbutrin XL) One A Day Vitamin PO DAILY 02/14/24 07/21/25 Unknown History lorazepam 2 mg tablet (Ativan) 2 mg PO DAILY PRN anxiety 03/27/24 07/21/25 Unknown History fexofenadine 30 mg tablet 30 mg PO DAILY 05/23/24 07/21/25 Unknown History trazodone 100 mg tablet 200 mg PO BEDTIME Insomnia 05/23/24 07/21/25 Unknown History cholecalciferol (vitamin D3) 25 25 mcg PO DAILY 02/19/25 07/21/25 Unknown History mcg (1,000 unit) capsule omeprazole magnesium 20 mg 20 mg PO DAILY 02/19/25 07/21/25 Unknown History tablet,delayed release (Prilosec OTC) lurasidone 20 mg tablet (Latuda) 60 mg PO DAILY 07/21/25 07/21/25 Unknown History Exam Exam Date and Time: 09/24/25 1009 Height,Weight and Vital Signs: Height 5 ft Weight 101.6 kg Vital Signs Temperature 98.6 F 09/24/25 09:54 Pulse Rate 86 09/24/25 09:54 Respiratory Rate 18 09/24/25 09:54 Blood Pressure 131/93 H 09/24/25 09:54 Pulse Oximetry 96 09/24/25 09:54 Oxygen Delivery Method Room Air 09/24/25 09:54 Temperature 98.6 F 09/24/25 09:54 Pulse Rate 86 09/24/25 09:54 Respiratory Rate 18 09/24/25 09:54 Blood Pressure 131/93 H 09/24/25 09:54 Pulse Oximetry 96 09/24/25 09:54 Oxygen Delivery Method Room Air 09/24/25 09:54 Airway Mallampati Class: III (small oral aperture) TM Dist: <=3cm Neck ROM: Full Loose/Missing/Broken Teeth: No (patient denies any loose or broken teeth) Heart: S1S2 Lungs: CTAB Assessment and Plan Assessment Anesthesia Assessment: Anesthesia Plan Discussed and Chart Reviewed Final Anesthetic Review Family History of Problems with Anesthesia: No History of Problems with Anesthesia: No NPO: Yes ASA Class: III Final Preanesthetic Review: No Changes in Pt Med Stat, Meds/Allgs Chart Reviewed, Consent Obtained/Reviewed and Anes Risks/Benef Reviewed Patient Risk: Low Procedure Risk: Low Anesthetic Plan Anesthetic Plan: MAC: and Agree w/ Assess. and Plan Disposition: Standard PACU
--- NOTE | 2025-09-24 10:15 | MHC.SHP ---
Pre-Procedural Eval Section A - 24 Hr Update-Section A only Date of Service: 09/24/25 Section B - Complete if H&P > 30 days Chief Complaint: Personal history of colon polyps, unspecified Relevant Family History (Specify if Yes): No Relevant Social History: Other (specify) Present Medications: see Short Stay Collaborative assessment Medical History: Significant History (Fibromyalgia syndrome Low back pain Bipolar disorder 1/PTSD Hx of uterine cancer panic disorder Cannabis use disorder Asthma) History of Previous Operations: Relevant previous surgery/procedure and date(s) (Cholecystectomy Hysterectomy Dental surgeries) Allergies: Allergies Allergy/AdvReac Type Severity Reaction Status Date / Time cephalexin (CEPHALEXIN) Allergy Unknown Anaphylaxis Verified 07/21/25 14:27 ciprofloxacin (CIPROFLOXACIN) Allergy Unknown R side of Verified 07/21/25 14:27 body numbness clindamycin (CLINDAMYCIN) Allergy Unknown UNKNOWN Verified 07/21/25 14:27 Opioids - Morphine Analogues Allergy Unknown UNKNOWN Verified 07/21/25 14:27 (OPIOIDS - MORPHINE ANALOGUES) All Opiates Allergy Unknown Full body Uncoded 07/21/25 14:27 hives, hallucinations Review of Systems Sugical H&P ROS: Negative: Constitution, Cardiovascular, Respiratory, Neurological, Psychiatric, Hem-Onc, Allergic/Immunologic, Gastrointestinal, Genitourinary, Musculoskeletal, Integumentary, Endocrine and Eyes/Ears/Nose/Throat Exam Surgical H&P Exam: Normal: HEENT, Normal: Heart, Normal: Lungs, Normal: Extremities, Normal: Abdomen, Normal: Skin and Normal: Neurological Plan Diagnosis/Plan: Unchanged I have reviewed the history and physical and performed a pertinent physical examination on my patient. No changes have occurred unless specified. Time Spent With Patient Time: Total time managing care of this patient today ____ minutes.
--- NOTE | 2025-09-24 10:48 | HO.OPN-COLON ---
Colonoscopy Operative Note Operative Note Date of Service: 09/24/25 Narrative: Operative Information Procedure Description: Colonoscopy Indication: screening Anesthesia: MAC COLONOSCOPY Instrument: Olympus variable stiffness pediatric scope 190L Colonoscopy Monitoring: Vital signs and clinical assessment, continuous EKG monitoring, Pulse oximetry, Carbon Dioxide monitoring and blood pressure monitoring were done throughout the procedure. Colon withdrawal time was 10 minutes. Procedure: The patient was placed in the left lateral decubitis position and pre-procedure medications were administered. After a digital rectal examination of the ano-rectum, the video colonoscope was inserted into the rectum and advanced through the colon to the cecum/TI. The colonoscope was slowly withdrawn in a retrograde panoramic fashion and the colon mucosa was carefully examined including a retroflexed view of the rectum. Findings and interventions are described below. Procedure Difficulty: easy Findings: Terminal Ileum-normal Cecum:normal Right sided retroflexion- normal Ascending Colon: normal Transverse Colon -normal Descending Colon:normal Sigmoid Colon: moderate diverticulosis Rectum: Retroflexion with small internal hemorrhoids seen, grade I Anorectum - normal Intervention: none Colon preparation: [place] Bowel Preparation Scale Right colon; 2 Transverse colon: 2 Left colon; 2 (0 = Unprepared colon segment with mucosa not seen due to solid stool that cannot be cleared. 1 = Portion of mucosa of the colon segment seen, but other areas of the colon segment not well seen due to staining, residual stool and/or opaque liquid. 2 = Minor amount of residual staining, small fragments of stool and/or opaque liquid, but mucosa of colon segment seen well. 3 = Entire mucosa of colon segment seen well with no residual staining, small fragments of stool or opaque liquid) Impression and Post Procedure Diagnosis: diverticulosis internal hemorrhoids Plan: High fiber diet leaflet Avoid straining at stool, epsom salts and sitz bath, anusol supps or cream Repeat Colonoscopy in 10 years or earlier if clinically indicated Above findings were reviewed with the patient and relevant handouts were provided if indicated.
[2025-09-24 10:51] VITALS: BP 113/63; PULSE 87; RESP 22; TEMP 36.1; O2SAT 97
[2025-09-24 11:03] VITALS: BP 116/68; PULSE 87; RESP 20; TEMP 36.1; O2SAT 94
== END 2025-09-24 11:29 | disposition home or self-care (01) ==
PROVIDERS: PCP Internal Medicine; Visit Provider Internal Medicine Gastroenterology
PROC: 0DJD8ZZ Inspection of Lower Intestinal Tract, Via Natural or Artificial Opening Endoscopic (ICD-10-PCS; CPT 45378; principal; 2025-09-24 12:00)
DX: Z12.11 Encounter for screening for malignant neoplasm of colon (principal); Z83.719 Family history of colon polyps, unspecified; K57.30 Diverticulosis of large intestine without perforation or abscess without bleeding; K64.0 First degree hemorrhoids
CPT/HCPCS: 45378; J2250; J2704

== ENCOUNTER → 2025-09-24 09:18 | Outpatient (BNV) | payer OTHER, SELFPAY | PROVIDERS: PCP Internal Medicine; Visit Provider Internal Medicine Gastroenterology | DX: Z12.11 Encounter for screening for malignant neoplasm of colon (principal); K57.30 Diverticulosis of large intestine without perforation or abscess without bleeding; K64.0 First degree hemorrhoids | CPT/HCPCS: 45378 ==